=== PATIENT | male | born 1970 | race Caucasian/White ===

== ENCOUNTER 2019-02-14 11:43 | Emergency (ER) | payer OTHER ==
--- NOTE | 2019-02-14 12:35 | ED ---
Psych HPI - General Chief Complaint: Psychiatric Symptoms Stated Complaint: mental health Source: patient Mode of arrival: ambulatory - History of Present Illness Initial Comments: 48yo male with history of panic disorder presents emergency department for chief complaint of uncontrolled anxiety. Patient states the past year since she has been taken off his Xanax he has had uncontrolled anxiety. Patient states this caused him to return to call. Patient states that he singeing alcohol to relieve the stress. Patient states is now interfering daily activities, he states he is unable to work due to her high anxiety and public setting. Patient has a chest pain shortness of breath nausea vomiting headache dizziness. Patient states if he could E put back on Xanax or any other anti-anxiety medications he feels he would be better. Patient denies any suicidal or homicidal ideation. Patient states he just wants established with a psychiatrist. Has an outpatient scheduled appointment for February 20. Patient has no other complaints patient was petitioned by his sister for psychiatric evaluation. Patient states today what to come to the hospital. Remaining review of system negative. Upon arrival patient does not appear acutely psychotic he is cooperative in no distress. - Related Data Home Medications Medication Instructions Recorded Confirmed No Known Home Medications 02/14/19 02/14/19 Allergies Allergy/AdvReac Type Severity Reaction Status Date / Time No Known Allergies Allergy Verified 02/14/19 12:09 Review of Systems ROS Statement: Those systems with pertinent positive or pertinent negative responses have been documented in the HPI. ROS Other: All systems not noted in ROS Statement are negative. Past Medical History Past Medical History: No Reported History History of Any Multi-Drug Resistant Organisms: None Reported Additional Past Surgical History / Comment(s): mole removal Past Psychological History: Anxiety, Depression Smoking Status: Current every day smoker Past Alcohol Use History: Occasional Past Drug Use History: None Reported General Exam - General Exam Comments Initial Comments: General: The patient is awake and alert, in no distress, and does not appear acutely ill. Eye: Pupils are equal, round and reactive to light, extra-ocular movements are intact. No nystagmus. There is normal conjunctiva bilaterally. No signs of i cterus. Cardiovascular: There is a regular rate and rhythm. No murmur, rub or gallop is appreciated. Respiratory: Lungs are clear to auscultation, respirations are non-labored, breath sounds are equal. No wheezes, stridor, rales, or rhonchi. Gastrointestinal: Soft, non-distended, non-tender abdomen without masses or o rganomegaly noted. There is no rebound or guarding present. Musculoskeletal: Normal ROM, no tenderness. Strength 5/5. Sensation intact. Pulses equal bilaterally 2+. Neurological: A&O x 3. CN II-XII intact grossly, There are no obvious motor or sensory deficits. Coordination appears grossly intact. Speech is normal. Skin: Skin is warm and dry and no rashes or lesions are noted. Psychiatric: Cooperative, appropriate mood & affect, normal judgment. Limitations: no limitations Course Vital Signs 02/14/19 02/14/19 11:50 16:08 Temperature 97.5 F L 98.0 F Pulse Rate 106 H 98 Respiratory 20 18 Rate Blood Pressure 180/101 167/96 O2 Sat by Pulse 97 95 Oximetry Medical Decision Making - Medical Decision Making 48 year-old male presents emergency room for evaluation of chronic anxiety for the past year since he has been off his Xanax. Patient does not appear to be a harm to himself or others. Patient does have an outpatient psychiatry aracelis ointment. Patient has no other complaints. Patient did have elevation of heart rate as well as blood pressure on arrival--however he states he was anxious and did not want to be in the hospital. Repeat vital signs reveal a heart rate and normal limits. Patient was given 1 dose of Ativan. Patient was medically cleared and evaluated by psychiatry nurse, she spoke with psychiatrist who recommended outpatient treatment, patient was provided additional resources. Patient discharged appearing well after discussing the case with Dr. Rodriguez. - Lab Data Lab Results 02/14/19 Range/Units 13:45 Urine Opiates Screen Not Detected (NotDetected) Ur Oxycodone Screen Not Detected (NotDetected) Urine Methadone Screen Not Detected (NotDetected) Ur Propoxyphene Screen Not Detected (NotDetected) Ur Barbiturates Screen Not Detected (NotDetected) U Tricyclic Antidepress Not Detected (NotDetected) Ur Phencyclidine Scrn Not Detected (NotDetected) Ur Amphetamines Screen Not Detected (NotDetected) U Methamphetamines Scrn Not Detected (NotDetected) U Benzodiazepines Scrn Not Detected (NotDetected) Urine Cocaine Screen Not Detected (NotDetected) U Marijuana (THC) Screen Not Detected (NotDetected) Disposition Clinical Impression: Chronic anxiety, Alcohol abuse, History of panic disorder Disposition: HOME SELF-CARE Condition: Good Additional Instructions: Please use medication as discussed. Please follow-up with outpatient psychiatry as discussed and scheduled. Please return to emergency room if the symptoms increase or worsen or for any other concerns. Is patient prescribed a controlled substance at d/c from ED?: No Referrals: Taurus Petit MD [Primary Care Provider] - 1-2 days Time of Disposition: 16:04
[2019-02-14] MEDS ORDERED: LORazepam 1 MG TAB PO STA (13:23)
[2019-02-14 14:54] LABS: Amphetamine Screen,Urine Not Detected (NotDetected); Barbiturate Screen,Urine Not Detected (NotDetected); Benzodiazepines Screen,Urine Not Detected (NotDetected); Cocaine Screen,Urine Not Detected (NotDetected); Methadone Screen, Urine Not Detected (NotDetected); Opiate Screen,Urine Not Detected (NotDetected); Oxycodone Screen, Urine Not Detected (NotDetected); Phencyclidine Screen,Urine Not Detected (NotDetected); Tricyclic Antidepressant,Urine Not Detected (NotDetected); Urn Cannabinoid Scrn Not Detected (NotDetected)
[2019-02-14 16:09] VITALS: BP 167/96; PULSE 98; RESP 18; TEMP 98
== END 2019-02-14 16:39 | disposition home or self-care (01) ==
LOC: EC 11:43
DX: F41.9 Anxiety disorder, unspecified (principal); F10.10 Alcohol abuse, uncomplicated; F17.200 Nicotine dependence, unspecified, uncomplicated; Z86.59 Personal history of other mental and behavioral disorders
CPT/HCPCS: 80306; 82075; 99284

== ENCOUNTER 2019-02-17 17:54 | Emergency (ER) | payer OTHER ==
[2019-02-17] MEDS ORDERED: ALPRAZolam 0.5 MG TAB PO STA (18:33)
--- NOTE | 2019-02-17 18:37 | ED ---
Psych HPI - General Source: patient Mode of arrival: ambulatory <Amelia Singletary - Last Filed: 02/17/19 18:49> <Jovani Barahona - Last Filed: 02/18/19 10:43> - General Chief Complaint: Psychiatric Symptoms Stated Complaint: Mental Health Time Seen by Provider: 02/17/19 18:20 - History of Present Illness Initial Comments: 48-year-old male patient presents to the emergency department today for evaluation of suicidal ideation. States he has severe anxiety. Patient states that he is very fearful to leave the house or to drive. States that symptoms seem to be getting worse and he is now unable to work or function. Patient states his been going on for many years, but was controlled with xanax. States they stopped giving him the xanax about a year ago. Patient states he replaced it with alcohol and has been drinking heavily since. States he does not go out socially or into public. States he had a severe panic attack while driving a few days ago, his arms and legs went numb and he was nervous he would crash his car. Patient states that he cannot go on like this and has been having thoughts of suicide. States that his plan is to hang himself with his neck tie. Not currently taking any medications or receive outpatient counseling. Denies any history of mental health admission. He denies any current physical symptoms or concerns. Patient denies any recent rash, fever, chills, shortness breath, chest pain, abdominal pain, nausea, vomiting, diarrhea, constipation, back pain, numbness, tingling, dizziness, weakness, hematuria, dysuria, urinary urgency, urinary frequency, headache, visual changes, or any other complaints. (Amelia Singletary) - Related Data Home Medications Medication Instructions Recorded Confirmed LORazepam [Ativan] 0.5 mg PO DAILY PRN 02/17/19 02/17/19 Lisinopril [Zestril] 10 mg PO DIRECTED 02/17/19 02/17/19 Multivitamin [Multivitamins Adult 1 tab PO DAILY 02/17/19 02/17/19 Gummies] Allergies Allergy/AdvReac Type Severity Reaction Status Date / Time No Known Allergies Allergy Verified 02/17/19 18:41 Review of Systems ROS Other: All systems not noted in ROS Statement are negative. <Amelia Singletary - Last Filed: 02/17/19 18:49> ROS Other: All systems not noted in ROS Statement are negative. <JunJovani - Last Filed: 02/18/19 10:43> ROS Statement: Those systems with pertinent positive or pertinent negative responses have been documented in the HPI. Past Medical History Past Medical History: No Reported History History of Any Multi-Drug Resistant Organisms: None Reported Additional Past Surgical History / Comment(s): mole removal Past Psychological History: Anxiety, Depression Smoking Status: Current every day smoker Past Alcohol Use History: Abuse, Daily Past Drug Use History: None Reported <Amelia Singletary - Last Filed: 02/17/19 18:49> General Exam Limitations: no limitations General appearance: alert, in no apparent distress, other (This is a well-develo ped, well-nourished adult male patient in no acute distress. Vital signs upon presentation are temperature 98.2F, pulse 104, respirations 18, blood pressure 148/91, pulse ox 97% on room air.) Eye exam: Present: normal appearance, PERRL, EOMI. Absent: scleral icterus, conjunctival injection, periorbital swelling ENT exam: Present: normal exam, normal oropharynx, mucous membranes moist Respiratory exam: Present: normal lung sounds bilaterally. Absent: respiratory distress, wheezes, rales, rhonchi, stridor Cardiovascular Exam: Present: regular rate, normal rhythm, normal heart sounds. Absent: systolic murmur, diastolic murmur, rubs, gallop, clicks Neurological exam: Present: alert, oriented X3, CN II-XII intact Psychiatric exam: Present: anxious, suicidal ideation. Absent: homicidal ideation Skin exam: Present: warm, dry, intact, normal color. Absent: rash <Amelia Singletary M - Last Filed: 02/17/19 18:49> Course <JunJovani - Last Filed: 02/18/19 10:43> Vital Signs 02/17/19 02/17/19 02/18/19 18:15 22:00 10:40 Temperature 98.2 F 98.1 F Pulse Rate 104 H 97 92 Respiratory 18 18 16 Rate Blood Pressure 148/91 134/91 152/97 O2 Sat by Pulse 97 96 Oximetry - Reevaluation(s) Reevaluation #1: 02/18/19 10:41 The patient rested comfortably throughout the evening but is very anxious. He was evaluated by the psychiatric service and will be transferred. He is still very anxious and depressed and suicidal. A new clinical certification was filled out by me. (Jovani Barahona) Medical Decision Making - Lab Data Result diagrams: 02/18/19 01:15 02/18/19 01:15 <Jovani Barahona - Last Filed: 02/18/19 10:43> - Lab Data Lab Results 02/17/19 02/18/19 02/18/19 Range/Units 20:09 01:15 01:15 WBC 8.2 (3.8-10.6) k/uL RBC 4.94 (4.30-5.90) m/uL Hgb 15.4 (13.0-17.5) gm/dL Hct 47.4 (39.0-53.0) % MCV 96.0 (80.0-100.0) fL MCH 31.2 (25.0-35.0) pg MCHC 32.5 (31.0-37.0) g/dL RDW 12.6 (11.5-15.5) % Plt Count 246 (150-450) k/uL Neutrophils % 45 % Lymphocytes % 41 % Monocytes % 6 % Eosinophils % 3 % Basophils % 2 % Neutrophils # 3.7 (1.3-7.7) k/uL Lymphocytes # 3.4 (1.0-4.8) k/uL Monocytes # 0.5 (0-1.0) k/uL Eosinophils # 0.3 (0-0.7) k/uL Basophils # 0.1 (0-0.2) k/uL Sodium 138 (137-145) mmol/L Potassium 3.8 (3.5-5.1) mmol/L Chloride 103 (98-107) mmol/L Carbon Dioxide 20 L (22-30) mmol/L Anion Gap 15 mmol/L BUN 9 (9-20) mg/dL Creatinine 0.70 (0.66-1.25) mg/dL Est GFR (CKD-EPI)AfAm >90 (>60 ml/min/1.73 sqM) Est GFR (CKD-EPI)NonAf >90 (>60 ml/min/1.73 sqM) Glucose 88 (74-99) mg/dL Calcium 9.5 (8.4-10.2) mg/dL Total Bilirubin 0.6 (0.2-1.3) mg/dL AST 62 H (17-59) U/L ALT 75 H (21-72) U/L Alkaline Phosphatase 53 (38-126) U/L Total Protein 7.4 (6.3-8.2) g/dL Albumin 4.6 (3.5-5.0) g/dL Urine Opiates Screen Not Detected (NotDetected) Ur Oxycodone Screen Not Detected (NotDetected) Urine Methadone Screen Not Detected (NotDetected) Ur Propoxyphene Screen Not Detected (NotDetected) Ur Barbiturates Screen Not Detected (NotDetected) U Tricyclic Antidepress Not Detected (NotDetected) Ur Phencyclidine Scrn Not Detected (NotDetected) Ur Amphetamines Screen Not Detected (NotDetected) U Methamphetamines Scrn Not Detected (NotDetected) U Benzodiazepines Scrn Not Detected (NotDetected) Urine Cocaine Screen Not Detected (NotDetected) U Marijuana (THC) Screen Not Detected (NotDetected) Disposition <Amelia Singletary - Last Filed: 02/17/19 18:49> - Out of Hospital Transfer - Req. Specs Out of Hospital Transfer - Requested Specifics: Psychiatric Non-ICU <Jovani Barahona - Last Filed: 02/18/19 10:43> Clinical Impression: Acute anxiety, Depression, Suicidal ideation Disposition: TRANSFER TO PSYCH HOSP/UNIT Condition: Fair Referrals: Taurus Petit MD [Primary Care Provider] - 1-2 days
[2019-02-17 20:40] LABS: Amphetamine Screen,Urine Not Detected (NotDetected); Barbiturate Screen,Urine Not Detected (NotDetected); Benzodiazepines Screen,Urine Not Detected (NotDetected); Cocaine Screen,Urine Not Detected (NotDetected); Methadone Screen, Urine Not Detected (NotDetected); Opiate Screen,Urine Not Detected (NotDetected); Oxycodone Screen, Urine Not Detected (NotDetected); Phencyclidine Screen,Urine Not Detected (NotDetected); Tricyclic Antidepressant,Urine Not Detected (NotDetected); Urn Cannabinoid Scrn Not Detected (NotDetected)
[2019-02-17 23:23] VITALS: TEMP 98.1
[2019-02-18] MEDS ORDERED: LORazepam 2 MG/ML INJ IM STA (00:41)
[2019-02-18 01:28] LABS: Basophils # (A) 0.1 k/uL (0-0.2); Basophils % (A) 2 %; Eosinophils # (A) 0.3 k/uL (0-0.7); Eosinophils % (A) 3 %; HCT 47.4 % (39.0-53.0); HGB 15.4 gm/dL (13.0-17.5); Lymphocytes # (A) 3.4 k/uL (1.0-4.8); Lymphocytes % (A) 41 %; MCH 31.2 pg (25.0-35.0); MCHC 32.5 g/dL (31.0-37.0); Mean Platelet Volume 6.1; Monocytes # (A) 0.5 k/uL (0-1.0); Monocytes % (A) 6 %; Neutrophils # (A) 3.7 k/uL (1.3-7.7); Neutrophils % (A) 45 %; Platelet Count 246 k/uL (150-450); RBC 4.94 m/uL (4.30-5.90); RDW 12.6 % (11.5-15.5); WBC 8.2 k/uL (3.8-10.6)
[2019-02-18 01:38] LABS: ALT 75 U/L (21-72); AST 62 U/L (17-59); African American GFR (CKD) >90 (>60 ml/min/1.73 sqM); Albumin 4.6 g/dL (3.5-5.0); Alkaline Phosphatase 53 U/L (38-126); Anion Gap 15 mmol/L; Blood Urea Nitrogen 9 mg/dL (9-20); Calcium 9.5 mg/dL (8.4-10.2); Carbon Dioxide 20 mmol/L (22-30); Chloride 103 mmol/L (98-107); Glucose 88 mg/dL (74-99); Potassium 3.8 mmol/L (3.5-5.1); Sodium 138 mmol/L (137-145); Total Bilirubin 0.6 mg/dL (0.2-1.3); Total Protein 7.4 g/dL (6.3-8.2)
[2019-02-18] MEDS ORDERED: ALPRAZolam 1 MG TAB PO STA (10:36)
[2019-02-18 10:42] VITALS: RESP 16
[2019-02-18 16:27] VITALS: BP 160/80; PULSE 80
== END 2019-02-18 14:55 ==
LOC: EC 17:54
DX: R45.851 Suicidal ideations (principal); F41.9 Anxiety disorder, unspecified; F32.9 Major depressive disorder, single episode, unspecified; F17.200 Nicotine dependence, unspecified, uncomplicated; Z79.899 Other long term (current) drug therapy
CPT/HCPCS: 82075; 36415; 80053; 85025; 80306; 99285; 96372; J2060

== ENCOUNTER 2020-07-30 10:16 | Inpatient (IN) | payer OTHER ==
[2020-07-30] MEDS ORDERED: KETOROLAC 15 MG/ML 1 ML VIAL IVP STA (11:16)
[2020-07-30] MEDS ORDERED: MORPHINE SULFATE 4 MG/ML SYRINGE IVP STA (11:16)
[2020-07-30] MEDS ORDERED: ONDANSETRON 4 MG/2 ML VIAL IVP STA (11:16)
--- NOTE | 2020-07-30 11:58 | ED ---
Back Pain HPI - General Chief Complaint: Back Pain/Injury Stated Complaint: back pain Time Seen by Provider: 07/30/20 10:54 Source: patient, RN notes reviewed Mode of arrival: ambulatory Limitations: no limitations - History of Present Illness Initial Comments: This a 49-year-old male presents emergency Department with chief complaint of low back pain. Patient's been having issues with sciatica. Patient states that he was schedule have x-rays today but states the pain was worse and decided to come to the emergency department for pain control. He denies any bowel bladder incontinence or retention or saddle anesthesias denies any abdominal pain. Patient states that he was told he had abnormal EKG this is complaining of GERD symptoms to his PCP patient states he is supposed referred to outpatient testing. Patient states she still has some mild GERD/lower chest pain.. He states he is scheduled for follow-up outpatient. Patient denies any fevers or chills - Related Data Home Medications Medication Instructions Recorded Confirmed Venlafaxine HCl [Effexor XR] 37.5 mg PO DAILY 07/30/20 07/30/20 Venlafaxine HCl [Effexor XR] 150 mg PO DAILY 07/30/20 07/30/20 clonazePAM [KlonoPIN] 1 mg PO TID 07/30/20 07/30/20 Allergies Allergy/AdvReac Type Severity Reaction Status Date / Time No Known Allergies Allergy Verified 07/30/20 13:10 Review of Systems ROS Statement: Those systems with pertinent positive or pertinent negative responses have been documented in the HPI. ROS Other: All systems not noted in ROS Statement are negative. Past Medical History Past Medical History: No Reported History History of Any Multi-Drug Resistant Organisms: None Reported Additional Past Surgical History / Comment(s): mole removal, hpbv Past Psychological History: Anxiety, Depression Smoking Status: Current every day smoker Past Alcohol Use History: Abuse, Daily Past Drug Use History: None Reported General Exam Limitations: no limitations General appearance: alert, in no apparent distress Head exam: Present: atraumatic, normocephalic, normal inspection Eye exam: Present: normal appearance, PERRL, EOMI. Absent: scleral icterus, conjunctival injection, periorbital swelling Respiratory exam: Present: normal lung sounds bilaterally. Absent: respiratory distress, wheezes, rales, rhonchi, stridor Cardiovascular Exam: Present: regular rate, normal rhythm, normal heart sounds. Absent: systolic murmur, diastolic murmur, rubs, gallop, clicks GI/Abdominal exam: Present: soft, normal bowel sounds. Absent: distended, tenderness, guarding, rebound, rigid Extremities exam: Present: other (Lower extremity strength equal bilaterally neurovascular intact) Back exam: Present: full ROM (Moderate discomfort), tenderness (Left lower lumbar), paraspinal tenderness, vertebral tenderness Neurological exam: Present: CN II-XII intact, normal gait, reflexes normal. Absent: motor sensory deficit Skin exam: Present: warm, dry, intact, normal color. Absent: rash Course Vital Signs 07/30/20 07/30/20 07/30/20 10:21 12:26 13:00 Temperature 98.5 F Pulse Rate 99 82 Respiratory 18 18 18 Rate Blood Pressure 180/130 189/132 176/114 O2 Sat by Pulse 99 96 Oximetry 07/30/20 13:46 Temperature Pulse Rate 82 Respiratory 18 Rate Blood Pressure 164/100 O2 Sat by Pulse Oximetry Medical Decision Making - Medical Decision Making Patient wanted to have an elevated troponin at 0.088. Patient was started on heparin. Patiently admitted for cardiac rule out. Patient consult cardiology. - Lab Data Result diagrams: 07/30/20 12:42 07/30/20 12:42 Lab Results 07/30/20 07/30/20 07/30/20 Range/Units 12:42 12:42 12:42 WBC 8.1 (3.8-10.6) k/uL RBC 5.44 (4.30-5.90) m/uL Hgb 17.2 (13.0-17.5) gm/dL Hct 51.2 (39.0-53.0) % MCV 94.2 (80.0-100.0) fL MCH 31.6 (25.0-35.0) pg MCHC 33.5 (31.0-37.0) g/dL RDW 13.0 (11.5-15.5) % Plt Count 289 (150-450) k/uL MPV 7.0 Neutrophils % 59 % Lymphocytes % 29 % Monocytes % 7 % Eosinophils % 2 % Basophils % 1 % Neutrophils # 4.8 (1.3-7.7) k/uL Lymphocytes # 2.4 (1.0-4.8) k/uL Monocytes # 0.6 (0-1.0) k/uL Eosinophils # 0.2 (0-0.7) k/uL Basophils # 0.1 (0-0.2) k/uL Sodium 136 L (137-145) mmol/L Potassium 4.5 (3.5-5.1) mmol/L Chloride 101 (98-107) mmol/L Carbon Dioxide 21 L (22-30) mmol/L Anion Gap 14 mmol/L BUN 15 (9-20) mg/dL Creatinine 0.78 (0.66-1.25) mg/dL Est GFR (CKD-EPI)AfAm >90 (>60 ml/min/1.73 sqM) Est GFR (CKD-EPI)NonAf >90 (>60 ml/min/1.73 sqM) Glucose 102 H (74-99) mg/dL Calcium 10.0 (8.4-10.2) mg/dL Total Bilirubin 0.7 (0.2-1.3) mg/dL AST 36 (17-59) U/L ALT 26 (4-49) U/L Alkaline Phosphatase 58 (38-126) U/L Troponin I 0.088 H* (0.000-0.034) ng/mL Total Protein 8.0 (6.3-8.2) g/dL Albumin 4.8 (3.5-5.0) g/dL Lipase 193 (23-300) U/L Disposition Clinical Impression: Hypertension, Anginal equivalent, Sciatica, Elevated troponin Disposition: ADMITTED IP TO THIS HOSP Condition: Fair Referrals: Taurus Petit MD [Primary Care Provider] - 1-2 days
--- NOTE | 2020-07-30 12:06 | XR ---
EXAMINATION TYPE: XR knee complete LT DATE OF EXAM: 07/30/2020 COMPARISON: NONE HISTORY: Pain TECHNIQUE: Three views are submitted. FINDINGS: Joint spaces are preserved. Osseous structures are intact. No acute fracture seen. IMPRESSION: 1. No acute fracture or dislocation.
--- NOTE | 2020-07-30 12:06 | XR ---
EXAM TYPE: LUMBAR SPINE X RAY SERIES COMPARISON: NONE HISTORY: Pain TECHNIQUE: 4 views are submitted. FINDINGS: Alignment is anatomic. The pedicles are intact. The transverse processes are intact. There is no s pondylolysis or spondylolisthesis. Facet arthropathy lower lumbar spine. Mild hypertrophic changes. Mild degenerative disc disease L5-S1. IMPRESSION: 1. Multilevel facet arthropathy. 2. Mild degenerative disc disease L5-S1.
[2020-07-30] MEDS ORDERED: hydrALAZINE HCL 20 MG/ML 1 ML VIAL IVP STA ×2 (12:34→14:04)
[2020-07-30] MEDS ORDERED: HYDROmorphone 1 MG/ML 1 ML SYRINGE IVP STA (12:34)
[2020-07-30 13:01] LABS: Basophils # (A) 0.1 k/uL (0-0.2); Basophils % (A) 1 %; Eosinophils # (A) 0.2 k/uL (0-0.7); Eosinophils % (A) 2 %; HCT 51.2 % (39.0-53.0); HGB 17.2 gm/dL (13.0-17.5); Lymphocytes # (A) 2.4 k/uL (1.0-4.8); Lymphocytes % (A) 29 %; MCH 31.6 pg (25.0-35.0); MCHC 33.5 g/dL (31.0-37.0); MCV 94.2 fL (80.0-100.0); Monocytes # (A) 0.6 k/uL (0-1.0); Monocytes % (A) 7 %; Neutrophils # (A) 4.8 k/uL (1.3-7.7); Neutrophils % (A) 59 %; Platelet Count 289 k/uL (150-450); RBC 5.44 m/uL (4.30-5.90); WBC 8.1 k/uL (3.8-10.6)
[2020-07-30 13:03] LABS: ALT 26 U/L (4-49); AST 36 U/L (17-59); African American GFR (CKD) >90 (>60 ml/min/1.73 sqM); Albumin 4.8 g/dL (3.5-5.0); Alkaline Phosphatase 58 U/L (38-126); Anion Gap 14 mmol/L; Blood Urea Nitrogen 15 mg/dL (9-20); Carbon Dioxide 21 mmol/L (22-30); Chloride 101 mmol/L (98-107); Glucose 102 mg/dL (74-99); Lipase 193 U/L (23-300); Non-African American GFR(CKD) >90 (>60 ml/min/1.73 sqM); Sodium 136 mmol/L (137-145); Total Bilirubin 0.7 mg/dL (0.2-1.3)
[2020-07-30 13:09] LABS: Potassium 4.5 mmol/L (3.5-5.1)
[2020-07-30] MEDS ORDERED: ASPIRIN 81 MG PO STA (13:54)
[2020-07-30] MEDS ORDERED: HEPARIN SODIUM,PORCINE 5,000 UNIT/ML 1 ML VIAL IV PRN (13:55)
[2020-07-30] MEDS ORDERED: NITROGLYCERIN SL TABS 0.4 MG TAB SUBLINGUAL PRN (13:55)
[2020-07-30] MEDS ORDERED: HEPARIN SODIUM,PORCINE 5,000 UNIT/ML 1 ML VIAL IV ONE (13:55)
[2020-07-30] MEDS ORDERED: HEPARIN SOD,PORK IN 0.45% NACL 25,000 UNIT in 0.45% NACL 1 250ML.BAG IV SCH (14:00)
[2020-07-30] MEDS: MORPHINE SULFATE 4 MG/ML SYRINGE IV PRN ×2 (14:45→21:41)
--- NOTE | 2020-07-30 15:00 | XR ---
EXAMINATION TYPE: XR chest 1V DATE OF EXAM: 07/30/2020 HISTORY: Shortness of breath. COMPARISON: None. TECHNIQUE: Single view of the chest is submitted. FINDINGS: Demonstrated are scattered senescent parenchymal change. There is no evidence for focal infiltrate. The heart is stable. Hilar and mediastinal structures are within normal limits. Degenerative changes are seen of the dorsal spine. IMPRESSION: 1. Chronic changes without evidence for acute pulmonary disease.
[2020-07-30] MEDS ORDERED: clonazePAM 1 MG TAB PO SCH (16:00)
[2020-07-30] MEDS: clonazePAM 0.5 MG TAB PO SCH ×2 (18:20→22:30)
--- NOTE | 2020-07-30 22:15 | P.HPIM ---
History of Present Illness H&P Date: 07/30/20 Chief Complaint: Low back and leg pain History of presenting complaint: This is a pleasant 49-year-old patient of Dr. Freeman Petit. Patient is was a smoker and history of anxiety depression for which he takes medicines. Last fall patient started having pain in the lower back on the left side while doing some yard work. It has been present rather constantly but progressively is guarded worse. Patient did quite see a chiropractor twice not with much help. He also did: See his family doctor Dr. Petit who ordered some x-rays with him. 2 days he noticed that patient's finding difficulty to walk with a pain rating down left leg. Also area of burning sensation in the lower part of the leg and some numbness. No change in her bowel or bladder pattern. Patient was playing active hockey in the past patient also recently been having episodes of heartburn which has been present on and off. He sometimes takes Tums for the same. Patient's troponin started to come back positive. He has had these symptoms on and off for some time. Review of systems: GEN.: None EYES: None HEENT: None NECK: None RESPIRATORY: None CARDIOVASCULAR: Heartburn GASTROINTESTINAL: Heartburn GENITOURINARY: None MUSCULOSKELETAL: As above] LYMPHATICS: None HEMATOLOGICAL: None PSYCHIATRY: None NEUROLOGICAL: None Past medical history to include: Anxiety, depression Social history: He rents a room from his sister. Smokes about half a pack a day. Denies use of any recreational drugs. No alcohol. Will be starting a job in couple of days.. Family history: Reviewed, noncontributory to presentation Physical examination: VITAL SIGNS: 98.5, 99, 18, 164/100, 96% on room air GENERAL: BMI 26.8, laying in bed, comfortable. EYES: Pupils equal. Conjunctiva normal. HEENT: External appearance of nose and ears normal, oral cavity grossly normal. NECK: JVD not raised; masses not palpable. HEART: First and second heart sounds are normal; no edema. LUNGS: Respiratory rate normal; clear to auscultation. ABDOMEN: Soft, nontender, liver spleen not palpable, no masses palpable. PSYCH: Alert and oriented x3; mood and affect normal. MUSCULAR skeletal: Slight tenderness over the lower no spine on the left side lateral to the midline NEUROLOGICAL: Cranial nerves grossly intact; no facial asymmetry, power and sensation grossly intact. Increased reflexes of the left knee LYMPHATICS: No lymph nodes palpable in the axilla and neck INVESTIGATIONS, reviewed in the clinical context: WBC 8.1 hemoglobin 7.2 platelets 289 potassium 4.5 creatinine 0.78 Troponin I 0.088, 0.342, 0.271 Coronavirus [PCR]-not detected EKG tracing personally reviewed by me-normal sinus rhythm Chest x-ray film personally reviewed by me-no infiltrates Lumbar x-ray: Multilevel facet arthropathy. Mild DJD at L5-S1 level. Assessment and plan: -Possible non-Q wave TN. Patient been having some burning sensation in the chest. On and off for some time. EKGs mainly unremarkable. There is a rise and fall of the troponin. Placed on aspirin, IV heparin. On a 2-D echo. -IV heparin monitoring -Depression and anxiety not otherwise specified. Continue home medications -Chronic nicotine dependence patient cigarette smoker. Nicotine patch -Acute on chronic L5-S1 junction pain with radiculopathy, worsening Consultations be made to cardiology and orthopedic spine. Hold off any NSAIDs right now until the matter of coronary is settled. Care was discussed with the patient. Questions answered. Past Medical History Past Medical History: No Reported History History of Any Multi-Drug Resistant Organisms: None Reported Additional Past Surgical History / Comment(s): mole removal, hpbv Past Psychological History: Anxiety, Depression Smoking Status: Current every day smoker Past Alcohol Use History: Abuse, Daily Past Drug Use History: None Reported Medications and Allergies Home Medications Medication Instructions Recorded Confirmed Type Venlafaxine HCl [Effexor XR] 37.5 mg PO DAILY 07/30/20 07/30/20 History Venlafaxine HCl [Effexor XR] 150 mg PO DAILY 07/30/20 07/30/20 History clonazePAM [KlonoPIN] 1 mg PO TID 07/30/20 07/30/20 History Allergies Allergy/AdvReac Type Severity Reaction Status Date / Time No Known Allergies Allergy Verified 07/30/20 13:10 Physical Exam Vitals: Vital Signs Temp Pulse Resp BP Pulse Ox 07/30/20 21:44 68 16 146/103 07/30/20 18:10 97.5 F L 72 18 130/91 98 07/30/20 13:46 82 18 164/100 07/30/20 13:00 82 18 176/114 96 07/30/20 12:26 18 189/132 07/30/20 10:21 98.5 F 99 18 180/130 99 Intake and Output 07/30/20 07/30/20 07/30/20 06:59 14:59 22:59 Other: Weight 99.79 kg Results CBC & Chem 7: 07/30/20 12:42 07/30/20 12:42 Labs: Abnormal Lab Results - Last 24 Hours (Table) 07/30/20 07/30/20 07/30/20 Range/Units 12:42 12:42 15:30 Sodium 136 L (137-145) mmol/L Carbon Dioxide 21 L (22-30) mmol/L Glucose 102 H (74-99) mg/dL Troponin I 0.088 H* 0.342 H* (0.000-0.034) ng/mL 07/30/20 Range/Units 19:45 Sodium (137-145) mmol/L Carbon Dioxide (22-30) mmol/L Glucose (74-99) mg/dL Troponin I 0.271 H* (0.000-0.034) ng/mL
[2020-07-31 03:33] LABS: Cholesterol 257 mg/dL (<200); HDL Cholesterol 49 mg/dL (40-60); LDL Cholesterol,Calculated 140 mg/dL (0-99); Triglycerides 342 mg/dL (<150)
[2020-07-31] MEDS: MORPHINE SULFATE 4 MG/ML SYRINGE IV PRN ×4 (04:08→22:13)
[2020-07-31] MEDS ORDERED: ASPIRIN 325 MG TAB PO SCH (09:00)
[2020-07-31] MEDS ORDERED: ASPIRIN 325 MG TAB PO ONE (10:05)
[2020-07-31] MEDS ORDERED: ALPRAZolam 0.25 MG TAB PO PRN (10:09)
[2020-07-31] MEDS ORDERED: ALPRAZolam 0.5 MG TAB PO PRN (10:09)
[2020-07-31] MEDS ORDERED: SODIUM CHLORIDE 0.9% 1,000 ML in EMPTY BAG 1 BAG IV ONE (10:09)
[2020-07-31] MEDS: clonazePAM 0.5 MG TAB PO SCH ×3 (10:13→21:18)
[2020-07-31] MEDS: METOPROLOL TARTRATE 12.5 MG TAB PO SCH ×3 (10:13→21:18)
[2020-07-31] MEDS: ATORVASTATIN 80 MG TAB PO SCH (10:44)
[2020-07-31] MEDS: VENLAFAXINE HCL ER 150 MG CAP PO SCH (10:45)
[2020-07-31] MEDS: VENLAFAXINE HCL ER 37.5 MG CAP PO SCH (10:45)
--- NOTE | 2020-07-31 11:00 | ECHOF ---
Referral Reason:chest pain MEASUREMENTS -------- HEIGHT: 188.0 cm WEIGHT: 99.8 kg BP: IVSd: 1.5 cm (0.6 - 1.1) LVIDd: 4.9 cm (3.9 - 5.3) LVPWd: 1.6 cm (0.6 - 1.1) IVSs: 1.9 cm LVIDs: 3.8 cm LVPWs: 1.7 cm Ao Diam: 3.7 cm (2.0 - 3.7) AV Cusp: 2.1 cm (1.5 - 2.6) LA Diam: 3.0 cm (2.7 - 3.8) MV EXCURSION: 16.312 mm (> 18.000) MV EF SLOPE: 29 mm/s (70 - 150) EPSS: 1.6 cm MV E Luis Daniel: 0.62 m/s MV DecT: 217 ms MV A Luis Daniel: 0.81 m/s MV E/A Ratio: 0.77 RAP: 5.00 mmHg RVSP: 10.49 mmHg FINDINGS -------- This was a technically adequate study. The left ventricular size is normal. There is moderate concentric left ventricular hypertrophy. O verall left ventricular systolic function is low-normal with, an EF between 50 - 55 %. The right ventricle is normal in size. The left atrial size is normal. The right atrial size is normal. The aortic valve is trileaflet and appears structurally normal. The mitral valve is normal. There is trace mitral regurgitation. The tricuspid valve appears structurally normal. Trace tricuspid regurgitation present. Right trixie tricular systolic pressure is normal at < 35 mmHg. There is no pulmonic regurgitation present. The aortic root size is normal. Normal inferior vena cava with normal inspiratory collapse consistent with estimated right atrial pre ssure of 5 mmHg. There is no pericardial effusion. CONCLUSIONS -------- 1. The left ventricular size is normal. 2. There is moderate concentric left ventricular hypertrophy. 3. Overall left ventricular systolic function is low-normal with, an EF between 50 - 55 %. 4. There is trace mitral regurgitation. 5. Trace tricuspid regurgitation present. 6. There is no pericardial effusion. PULPWOOD CUTTER: Medina Ellis RDCS
[2020-07-31] MEDS ORDERED: IV FLUID CONTINUATION 900 ML IV ONE (11:28)
[2020-07-31] MEDS ORDERED: LIDOCAINE 1% INJ 10MG/ML (20 ML MDV) SQ ONE (11:38)
[2020-07-31] MEDS ORDERED: fentaNYL (PF) 50 MCG/ML 2 ML AMP IV ONE ×2 (11:39)
[2020-07-31] MEDS ORDERED: MIDAZOLAM 2 MG/2 ML VIAL IV ONE (11:39)
[2020-07-31] MEDS ORDERED: VERAPAMIL SYRINGE (5 MG/10 ML) INTRAARTER ONE (11:41)
[2020-07-31] MEDS ORDERED: HEPARIN SODIUM 1,000 UN/ML (10ML VL) IV ONE (11:48)
[2020-07-31] MEDS ORDERED: IOPAMIDOL-370 125ML BTL INJ ONE (11:53)
[2020-07-31] MEDS ORDERED: RX INFO: IV CONTRAST WAS GIVEN 1 EACH MISC MISCELLANE PRN (12:02)
--- NOTE | 2020-07-31 12:02 | P.CARDCATH ---
Description of Procedure: PROCEDURES PERFORMED: Left heart catheterization, bilateral coronary angiography INDICATION: NSTEMI HISTORY: Patient is a pleasant 49-year-old male who presented with back pain and GERD type symptoms and was found to have mildly elevated troponins. Echocardiogram showed ejection fraction 50-55%. Heart catheterization was recommended. CONSENT:I have discussed the risks, benefits and alternative therapies for the above-mentioned procedure and for both sedation/analgesia as well as necessary blood product administration, if indicated, as they pertain to this patient. The patient has indicated understanding and acceptance of the risks and procedures discussed. PROCEDURE: After the risks, benefits and alternatives of the above mentioned procedure explained in detail with the patient, informed consent was obtained. Patient was taken to the catheterization lab and prepped and draped in usual fashion. 1% lidocaine was used to anesthetize the right radial artery. A 6- Hungarian sheath was placed in the right radial artery using modified Seldinger technique. Left coronary angiography was performed with a 5-Hungarian JL 3.5 catheter and right coronary angiography was performed with a 5-Hungarian JR5 catheter in various views. A 5-Hungarian FR5 catheter was inserted into the left ventricle and pressure measurements were obtained. The right radial sheath was removed and a TR band was placed with hemostasis achieved. The patient tolerated the procedure well. Patient was transported back to the post catheterization holding area in stable condition. Conscious Sedation: Patient was monitored under the direct supervision of vision of myself for conscious sedation using Versed and fentanyl for a total duration of 16 minutes HEMODYNAMICS: Aorta: 132/88 LV: 128/8, LVEDP 23 SELECTIVE CORONARY ARTERIOGRAPHY: LEFT MAIN: The left main is a large, short caliber vessel which bifurcates into the LAD and circumflex. There is no significant stenosis. LEFT ANTERIOR DESCENDING CORONARY ARTERY: LAD is a large caliber vessel which wraps around to the apex. There is a focal mid 30% stenosis and otherwise mild luminal irregularities. LEFT CIRCUMFLEX CORONARY ARTERY: Left circumflex is a moderate to large caliber vessel without significant stenosis. RIGHT CORONARY ARTERY: The right coronary artery is a large caliber vessel which gives off a PDA and PLV branch and is the dominant vessel. There is a mid RCA 20% stenosis. FINAL IMPRESSION: 1. Mild nonobstructive coronary artery disease as described above up to 30% mid LAD stenosis. 2. Elevated left-sided filling pressures PLAN: 1. Aggressive risk factor modification per most recent ACC/AHA guidelines.
--- NOTE | 2020-07-31 12:07 | P.PN ---
Progress Note - Text Progress Note Date: 07/31/20 Attempted to see the patient in the emergency room but he is in cardiac catheterization currently.
--- NOTE | 2020-07-31 12:46 | P.PN ---
Subjective From records This is a pleasant 49-year-old patient of Dr. Freeman Petit. Patient is was a smoker and history of anxiety depression for which he takes medicines. Last fall patient started having pain in the lower back on the left side while doing some yard work. It has been present rather constantly but progressively is guarded worse. Patient did quite see a chiropractor twice not with much help. He also did: See his family doctor Dr. Petit who ordered some x-rays with him. 2 days he noticed that patient's finding difficulty to walk with a pain rating down left leg. Also area of burning sensation in the lower part of the leg and some numbness. No change in her bowel or bladder pattern. Patient was playing active hockey in the past patient also recently been having episodes of heartburn which has been present on and off. He sometimes takes Tums for the same. Patient's troponin started to come back positive. He has had these symptoms on and off for some time. Subjective: 07/31/2020 This is a pleasant 49 years old male with multiple medical problems presents with back pain acute on chronic after he did some yard work and found to have elevated troponin. When I saw him this morning he denies any complaint to me, he denies chest pain or dyspnea or coughing. No pain. Patient underwent cardiac cath today per plaster machine tender showing mild nonobstructive coronary artery disease about 30% in the middle LAD stenosis with elevated left side filling the pressure and no stent or PCI was placed and medical management is recommended by plaster machine tender. D-dimer was checked and it was negative at 0.21 Orthopedic team already on the case Review of systems CONSTITUTIONAL: No fever, no malaise, no fatigue. HEENT: No recent visual problems or hearing problems. Denied any sore throat. CARDIOVASCULAR: No orthopnea, PND, no palpitations, no syncope. PULMONARY: No shortness of breath, no cough, no hemoptysis. GASTROINTESTINAL: No diarrhea, no nausea, no vomiting, no abdominal pain. Normoactive bowel sounds. NEUROLOGICAL: No headaches, no weakness, no numbness. Active Medications Generic Name Dose Route Start Last Admin Trade Name Freq PRN Reason Stop Dose Admin Aspirin 81 mg 08/01/20 09:00 Aspirin 81 Mg PO DAILY [facility] Atorvastatin Calcium 80 mg 07/31/20 10:15 07/31/20 10:44 Atorvastatin 80 Mg Tab PO 80 mg DAILY [facility] Administration Clonazepam 1 mg 07/30/20 18:00 07/31/20 10:13 Clonazepam 0.5 Mg Tab PO 1 mg TID [facility] Administration Heparin Sodium (Porcine) 0 unit 07/30/20 13:55 07/31/20 07:58 Heparin Sodium,Porcine 5,000 Unit/Ml 1 Ml Vial IV 4,000 unit Q6HR PRN Administration Low PTT Protocol Heparin Sodium/Sodium Chloride 250 mls @ 9.979 mls/hr 07/30/20 14:00 07/31/20 07:50 25,000 unit/ Sodium Chloride IV 13 units/kg/hr .Q24H [facility] 12.973 mls/hr Titration Protocol 10 UNITS/KG/HR Sodium Chloride 1,000 ml/ IV 1,000 mls @ 99.79 mls/hr 07/31/20 10:09 07/31/20 10:46 Solution IV 07/31/20 20:10 99.79 mls/hr .Q10H2M ONE Administration 1 ML/KG/HR Heparin Sodium (Porcine) 10, 1,001 mls @ 999 mls/hr 08/01/20 07:00 000 unit/ Sodium Chloride IRRIGATION 08/01/20 23:00 ONCE PRN INTRA-OP Heparin Sodium (Porcine) 2,500 250.5 mls @ 250 mls/hr 08/01/20 07:00 unit/ Sodium Chloride IRRIGATION 08/01/20 23:00 ONCE PRN INTRA-OP Metoprolol Tartrate 12.5 mg 07/30/20 23:00 07/31/20 10:16 Metoprolol Tartrate 12.5 Mg Tab PO Not Given BID [facility] Miscellaneous Information 1 each 07/31/20 12:02 Rx Info: Iv Contrast Was Given 1 Each Misc MISCELLANE 08/02/20 12:02 DAILY PRN Per Protocol Morphine Sulfate 4 mg 07/30/20 13:55 07/31/20 10:13 Morphine Sulfate 4 Mg/Ml Syringe IV 4 mg Q4HR PRN Administration Pain Nitroglycerin 0.4 mg 07/30/20 13:55 Nitroglycerin Sl Tabs 0.4 Mg Tab SUBLINGUAL Q5M PRN Chest Pain Venlafaxine HCl 37.5 mg 07/31/20 09:00 07/31/20 10:45 Venlafaxine Hcl Er 37.5 Mg Cap PO 37.5 mg DAILY [facility] Administration Venlafaxine HCl 150 mg 07/31/20 09:00 07/31/20 10:45 Venlafaxine Hcl Er 150 Mg Cap PO 150 mg DAILY [facility] Administration Objective - Vital Signs Vital signs: Vital Signs Temp 97.5 F L 07/30/20 18:10 Pulse 72 07/31/20 12:30 Resp 16 07/31/20 12:30 BP 142/95 07/31/20 12:30 Pulse Ox 95 07/31/20 12:30 Intake & Output 07/30/20 07/31/20 07/31/20 18:59 06:59 18:59 Intake Total 271.14 Balance 271.14 Weight 99.79 kg 99.79 kg Intake: IV 100 Intake, IV Titration 171.14 Amount Heparin Sod,Pork in 0.45% 171.14 NaCl 25,000 unit In 0.45 % NaCl 1 250ml.bag @ 10 UNITS/KG/HR 9.979 mls/hr IV .Q24H [facility] Rx#: [id number] - Exam GENERAL: The patient is alert and oriented x3, not in any acute distress. Well developed, well nourished. HEENT: Pupils are round and equally reacting to light. EOMI. No scleral icterus. No conjunctival pallor. Normocephalic, atraumatic. No pharyngeal erythema. No thyromegaly. CARDIOVASCULAR: S1 and S2 present. No murmurs, rubs, or gallops. PULMONARY: Chest is clear to auscultation, no wheezing or crackles. ABDOMEN: Soft, nontender, nondistended, normoactive bowel sounds. No palpable organomegaly. MUSCULOSKELETAL: No joint swelling or deformity. EXTREMITIES: No cyanosis, clubbing, or pedal edema. NEUROLOGICAL: Gross neurological examination did not reveal any focal deficits. SKIN: No rashes. no petechiae. - Labs CBC & Chem 7: 07/30/20 12:42 07/30/20 12:42 Labs: Abnormal Lab Results - Last 24 Hours (Table) 07/30/20 07/30/20 07/30/20 Range/Units 12:42 12:42 12:42 Sodium 136 L (137-145) mmol/L Carbon Dioxide 21 L (22-30) mmol/L Glucose 102 H (74-99) mg/dL Troponin I 0.088 H* (0.000-0.034) ng/mL Triglycerides 342 H (<150) mg/dL Cholesterol 257 H (<200) mg/dL LDL Cholesterol, Calc 140 H (0-99) mg/dL 07/30/20 07/30/20 Range/Units 15:30 19:45 Sodium (137-145) mmol/L Carbon Dioxide (22-30) mmol/L Glucose (74-99) mg/dL Troponin I 0.342 H* 0.271 H* (0.000-0.034) ng/mL Triglycerides (<150) mg/dL Cholesterol (<200) mg/dL LDL Cholesterol, Calc (0-99) mg/dL Assessment and Plan Assessment: -non-obstructive mild coronary artery disease with 30% stenosis of the mid LAD, medical management is recommended by plaster machine tender -Acute and chronic low back pain, orthopedic team on the case -Depression and anxiety, continue with home medications and they recommended MRI of the lumbar spine which is pending -Nicotine dependence, continue with nicotine patch, patient is counseled DVT prophylaxis: Subcutaneous heparin GI prophylaxis: Pepcid PT/OT: Pending Prognosis is guarded
--- NOTE | 2020-07-31 13:26 | P.CRDCN ---
History of Present Illness History of present illness: HISTORY OF PRESENTING ILLNESS This is a pleasant 49-year-old male past medical history significant for chronic back pain, GERD and chronic nicotine dependence. 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 We have been asked to see in consultation for elevated troponin. He presented to the hospital with symptoms of lower back pain that has been going on intermittently for the last month after helping a neighbor move some things. Over the last 2 days the pain has been getting worse and so bad he couldn't bear it. He also states for the last month he has been experiencing a burning sensation in the mid-sternal region. The discomfort occurs when he wakes up in the morning. He takes 6-7 Tums and the symptoms resolve in about 20 minutes. No complaints of exertional chest pain or shortness of breath. DIAGNOSTICS EKG reveals sinus mechanism with no acute ST or T-wave abnormalities. Chest xray negative for an acute process. Laboratory reviewed, CBC unremarkable, sodium 136, potassium 4.5, creatinine 0.78, troponin 0.088, 0.342, 0.271, LDL 140, HDL 49 and d-dimer 0.21. He takes no daily cardiac medications. REVIEW OF SYSTEMS At the time of my exam: CONSTITUTIONAL: Denies fever or chills. CARDIOVASCULAR: Denies chest pain, shortness of breath, orthopnea, PND or palpitations. RESPIRATORY: Denies cough. GASTROINTESTINAL: Denies abdominal pain, diarrhea, constipation, nausea or vomiting. MUSCULOSKELETAL: Complains of low back pain that shoots down the left leg. NEUROLOGIC: Denies numbness, tingling, headacbe or weakness. ENDOCRINE: Denies fatigue, weight change, polydipsia or polyurina. GENITOURINARY: Denies burning, hematuria or urgency with micturation. HEMATOLOGIC: Denies history of anemia or bleeding. PHYSICAL EXAMINATION Blood pressure 123/70 heart rate 54 afebrile and maintaining oxygen saturation on room air. CONSTITUTIONAL: No apparent distress. HEENT: Head is normocephalic. Pupils are equal, round. Sclerae anicteric. Mucous membranes of the mouth are moist. No JVD. No carotid bruit. CHEST EXAMINATION: Lungs are clear to auscultation. No chest wall tenderness is noted on palpation or with deep breathing. HEART EXAMINATION: Regular rate and rhythm. S1, S2 heard. No murmurs, gallops or rub. ABDOMEN: Soft, nontender. Positive bowel sounds. EXTREMITIES: 2+ peripheral pulses, no lower extremity edema and no calf tenderness. NEUROLOGIC EXAMINATION: Patient is awake, alert and oriented x3. ASSESSMENT NSTEMI Hypertension Dyslipidemia Back pain Chronic nicotine dependence Daily alcohol use PLAN Troponins are elevated suggesting myocardial injury however he has no symptoms of angina and no EKG changes. Recommend proceeding with cardiac catheterization to assess for underlying CAD. I have discussed the risks, benefits and alternative therapies for the above- mentioned procedure and for both sedation/analgesia as well as necessary blood product administration, if indicated, as they pertain to this patient. The patient has indicated understanding and acceptance of the risks and procedures discussed. Obtain 2-D echocardiogram and Doppler study to assess cardiac structure and function. Initiate atorvastatin 80 mg daily. Continue metoprolol 12.5 mg twice a day as previously ordered by the primary care team. Further recommendations to follow based upon clinical course. Smoking and alcohol cessation recommended. Thank you kindly for this consultation. Nurse Practitioner note has been reviewed, I agree with a documented findings and plan of care. Patient was seen and examined. Past Medical History Past Medical History: GERD/Reflux Additional Past Medical History / Comment(s): Palpitations in his 20s and wore a holter monitor that did not show arrhythmia, low back pain with L sided sciatica occasionally. History of Any Multi-Drug Resistant Organisms: None Reported Additional Past Surgical History / Comment(s): HPV/mole removal Past Anesthesia/Blood Transfusion Reactions: No Reported Reaction Smoking Status: Current every day smoker - Past Family History Mother Family Medical History: Cancer Additional Family Medical History / Comment(s): Mother from renal cancer at the age of 59yrs. Father History Unknown: Yes Medications and Allergies Home Medications Medication Instructions Recorded Confirmed Type Venlafaxine HCl [Effexor XR] 37.5 mg PO DAILY 07/30/20 07/30/20 History Venlafaxine HCl [Effexor XR] 150 mg PO DAILY 07/30/20 07/30/20 History clonazePAM [KlonoPIN] 1 mg PO TID 07/30/20 07/30/20 History Allergies Allergy/AdvReac Type Severity Reaction Status Date / Time No Known Allergies Allergy Verified 07/30/20 13:10 Physical Exam Vitals: Vital Signs Temp Pulse Resp BP Pulse Ox 07/31/20 07:18 123/82 03/24/21 22:31 77 16 140/86 07/30/20 21:44 68 16 146/103 07/30/20 18:10 97.5 F L 72 18 130/91 98 07/30/20 13:46 82 18 164/100 07/30/20 13:00 82 18 176/114 96 07/30/20 12:26 18 189/132 07/30/20 10:21 98.5 F 99 18 180/130 99 Intake and Output 07/30/20 07/31/20 07/31/20 22:59 06:59 14:59 Intake Total 171.14 Balance 171.14 Intake: Intake, IV Titration 171.14 Amount Heparin Sod,Pork in 0.45% 171.14 NaCl 25,000 unit In 0.45 % NaCl 1 250ml.bag @ 10 UNITS/KG/HR 9.979 mls/hr IV .Q24H [facility] Rx#: [id number] Other: Weight 99.79 kg Results 07/30/20 12:42 07/30/20 12:42 Cardiac Enzymes 07/30/20 07/30/20 07/30/20 Range/Units 12:42 12:42 15:30 AST 36 (17-59) U/L Troponin I 0.088 H* 0.342 H* (0.000-0.034) ng/mL 07/30/20 Range/Units 19:45 AST (17-59) U/L Troponin I 0.271 H* (0.000-0.034) ng/mL Coagulation 07/31/20 Range/Units 07:22 APTT 25.8 (22.0-30.0) sec Lipids 07/30/20 Range/Units 12:42 Triglycerides 342 H (<150) mg/dL Cholesterol 257 H (<200) mg/dL HDL Cholesterol 49 (40-60) mg/dL CBC 07/30/20 Range/Units 12:42 WBC 8.1 (3.8-10.6) k/uL RBC 5.44 (4.30-5.90) m/uL Hgb 17.2 (13.0-17.5) gm/dL Hct 51.2 (39.0-53.0) % Plt Count 289 (150-450) k/uL Comprehensive Metabolic Panel 07/30/20 Range/Units 12:42 Sodium 136 L (137-145) mmol/L Potassium 4.5 (3.5-5.1) mmol/L Chloride 101 (98-107) mmol/L Carbon Dioxide 21 L (22-30) mmol/L BUN 15 (9-20) mg/dL Creatinine 0.78 (0.66-1.25) mg/dL Glucose 102 H (74-99) mg/dL Calcium 10.0 (8.4-10.2) mg/dL AST 36 (17-59) U/L ALT 26 (4-49) U/L Alkaline Phosphatase 58 (38-126) U/L Total Protein 8.0 (6.3-8.2) g/dL Albumin 4.8 (3.5-5.0) g/dL Current Medications Generic Name Dose Route Start Last Admin Trade Name Freq PRN Reason Stop Dose Admin Aspirin 325 mg 07/31/20 09:00 Aspirin 325 Mg Tab PO DAILY [facility] Clonazepam 1 mg 07/30/20 18:00 07/30/20 22:30 Clonazepam 0.5 Mg Tab PO 1 mg TID G[facility] Administration Heparin Sodium (Porcine) 0 unit 07/30/20 13:55 07/31/20 07:58 Heparin Sodium,Porcine 5,000 Unit/Ml 1 Ml Vial IV 4,000 unit Q6HR PRN Administration Low PTT Protocol Heparin Sodium/Sodium Chloride 250 mls @ 9.979 mls/hr 07/30/20 14:00 07/31/20 07:50 25,000 unit/ Sodium Chloride IV 13 units/kg/hr .Q24H [facility] 12.973 mls/hr Titration Protocol 10 UNITS/KG/HR Metoprolol Tartrate 12.5 mg 07/30/20 23:00 Metoprolol Tartrate 12.5 Mg Tab PO BID [facility] Morphine Sulfate 4 mg 07/30/20 13:55 07/31/20 04:08 Morphine Sulfate 4 Mg/Ml Syringe IV 4 mg Q4HR PRN Administration Pain Nitroglycerin 0.4 mg 07/30/20 13:55 Nitroglycerin Sl Tabs 0.4 Mg Tab SUBLINGUAL Q5M PRN Chest Pain Venlafaxine HCl 37.5 mg 07/31/20 09:00 Venlafaxine Hcl Er 37.5 Mg Cap PO DAILY [facility] Venlafaxine HCl 150 mg 07/31/20 09:00 Venlafaxine Hcl Er 150 Mg Cap PO DAILY G[facility] Intake and Output 07/30/20 07/31/20 07/31/20 22:59 06:59 14:59 Intake Total 171.14 Balance 171.14 Intake: Intake, IV Titration 171.14 Amount Heparin Sod,Pork in 0.45% 171.14 NaCl 25,000 unit In 0.45 % NaCl 1 250ml.bag @ 10 UNITS/KG/HR 9.979 mls/hr IV .Q24H [facility] Rx#: [id number] Other: Weight 99.79 kg Patient Weight 08/01/20 06:59 Weight 99.79 kg 07/30/20 12:42 07/30/20 12:42
--- NOTE | 2020-07-31 16:08 | P.PN ---
Progress Note - Text Patient presented to the hospital with chronic back pain. Cardiology was consulted on account of elevated troponins Twelve-lead EKG was normal troponins showed a rise and fall pattern 0.08, 0.342, 0.27 LDL 140, HDL 49, triglycerides 342 Normal d-dimer Cardiac catheterization revealed LVEDP 23 mmHg Focal mid LAD stenosis, 30% Mid RCA 20% 2-D echo/Doppler Low normal LV systolic function, moderate LVH Plan Smoking cessation Minimize alcohol consumption Statin therapy for coronary artery disease
[2020-07-31] MEDS: FAMOTIDINE 20 MG/2 ML VIAL IV SCH (19:55)
[2020-07-31] MEDS: HEPARIN SODIUM,PORCINE 5,000 UNIT/ML 1 ML VIAL SQ SCH (21:19)
[2020-07-31 22:19] VITALS: RESP 18
[2020-08-01] MEDS ORDERED: HEPARIN SODIUM,PORCINE 10,000 UNIT in SODIUM CHLORIDE 0.9% 1,000 ML IRRIGATION PRN (07:00)
[2020-08-01] MEDS ORDERED: HEPARIN SODIUM,PORCINE 2,500 UNIT in SODIUM CHLORIDE 0.9% 250 ML IRRIGATION PRN (07:00)
[2020-08-01] MEDS ORDERED: ASPIRIN 81 MG PO SCH (09:00)
[2020-08-01 09:03] LABS: African American GFR (CKD) >90 (>60 ml/min/1.73 sqM); Anion Gap 6 mmol/L; Blood Urea Nitrogen 14 mg/dL (9-20); Calcium 9.1 mg/dL (8.4-10.2); Carbon Dioxide 26 mmol/L (22-30); Chloride 104 mmol/L (98-107); Glucose 102 mg/dL (74-99); Non-African American GFR(CKD) >90 (>60 ml/min/1.73 sqM); Potassium 4.3 mmol/L (3.5-5.1); Sodium 136 mmol/L (137-145)
[2020-08-01] MEDS: MORPHINE SULFATE 4 MG/ML SYRINGE IV PRN ×2 (09:52→15:47)
[2020-08-01] MEDS: ATORVASTATIN 80 MG TAB PO SCH (09:54)
[2020-08-01] MEDS: clonazePAM 0.5 MG TAB PO SCH ×2 (09:55→15:47)
[2020-08-01] MEDS: HEPARIN SODIUM,PORCINE 5,000 UNIT/ML 1 ML VIAL SQ SCH (09:55)
[2020-08-01] MEDS: FAMOTIDINE 20 MG/2 ML VIAL IV SCH (09:55)
[2020-08-01] MEDS: VENLAFAXINE HCL ER 150 MG CAP PO SCH (09:55)
[2020-08-01] MEDS: VENLAFAXINE HCL ER 37.5 MG CAP PO SCH (09:55)
[2020-08-01] MEDS: METOPROLOL TARTRATE 12.5 MG TAB PO SCH (09:55)
--- NOTE | 2020-08-01 12:01 | P.PN ---
Subjective Progress Note Date: 08/01/20 HISTORY OF PRESENT ILLNESS: Patient is status post cardiac catheterization revealing mild nonobstructive coronary artery disease including 20% stenosis of mid RCA and 30% stenosis of mid LAD. Patient denies chest pain or pressure. He denies shortness of breath. Echocardiogram completed revealing ejection fraction 50-55%, trace mitral regurgitation, and trace tricuspid regurgitation. PHYSICAL EXAM: VITAL SIGNS: Reviewed. GENERAL: Well-developed in no acute distress. NECK: Supple. No JVD or thyromegaly LUNGS: Respirations even and unlabored. Lungs essentially clear to auscultation bilaterally. HEART: Regular rate and rhythm. S1 and S2 heard. EXTREMITIES: Normal range of motion. No clubbing or cyanosis. Peripheral pulses intact. No lower extremity edema. Right radial cath site with pulse present. ASSESSMENT: Elevated troponins, status post cardiac catheterization revealing mild nonobstructive coronary artery disease Hypertension Hyperlipidemia Back pain Chronic nicotine dependence Daily alcohol use PLAN: Continue current cardiac medications Smoking cessation recommended Alcohol abstinence encouraged Patient may be discharged home today from a cardiac standpoint. He is to follow up on an outpatient basis. Nurse practitioner note has been reviewed by physician. Signing provider agrees with the documented findings, assessment, and plan of care. Objective - Vital Signs Vital signs: Vital Signs Temp 97.6 F 08/01/20 04:00 Pulse 60 08/01/20 04:00 Resp 18 08/01/20 04:00 BP 141/87 08/01/20 04:00 Pulse Ox 96 08/01/20 04:00 Intake & Output 07/31/20 08/01/20 08/01/20 18:59 06:59 18:59 Intake Total 511.14 10 10 Balance 511.14 10 10 Weight 99.79 kg 98.8 kg Intake: IV 100 10 10 0.9 10 Invasive Line 1 10 Intake, IV Titration 171.14 Amount Heparin Sod,Pork in 0.45% 171.14 NaCl 25,000 unit In 0.45 % NaCl 1 250ml.bag @ 10 UNITS/KG/HR 9.979 mls/hr IV .Q24H [facility] Rx#: [id number] Oral 240 Other: Voiding Method Toilet # Voids 2 1 - Labs CBC & Chem 7: 07/30/20 12:42 08/01/20 07:37 Labs: Abnormal Lab Results - Last 24 Hours (Table) 08/01/20 Range/Units 07:37 Sodium 136 L (137-145) mmol/L Glucose 102 H (74-99) mg/dL
--- NOTE | 2020-08-01 12:21 | MR ---
EXAMINATION TYPE: MR lumbar spine wo con DATE OF EXAM: 08/01/2020 COMPARISON: NONE HISTORY: Low back pain with sciatica TECHNIQUE: T1 and T2 axial and sagittal images of the lumbar spine are submitted. FINDINGS: There is no abnormal signal seen within the visualized spinal cord or paraspinal soft tissu es. Simple renal cyst on the right. Images of left kidney are partially included. There is an anterio r mass extending off the cortex of the left kidney which appear suspicious for a neoplasm. At L1-2 there is no disc herniation or canal stenosis. This signal preserved. Mild hypertrophic spencer e of the facets. No foraminal encroachment. At L2-3 there is no disc herniation or canal stenosis. This signal preserved. Mild hypertrophic spencer e of the facets. No foraminal encroachment At L3-4 there is no disc herniation or canal stenosis. This signal preserved. Mild hypertrophic spencer e of the facets. No foraminal encroachment At L4-5 there is no disc herniation or canal stenosis. This signal preserved. Mild hypertrophic spencer e of the facets. No foraminal encroachment At L5-S1 there is degenerative disc disease. There is a large left paracentral disc herniation with a nterior compression of thecal sac. Suspicion for an extruded fragment compressing the exiting left ne rve root. Appears to be abnormal signal extending superiorly along the posterior margin of the L5 arun tebral segment paracentrally to the left suggestive of either a extruded or sequestered fragment. Th ere is hypertrophic change of the facets. Moderate to severe left foraminal encroachment. IMPRESSION: 1. Large left paracentral disc herniation resulting in left lateral significant thecal sac compressio n, severe left foraminal encroachment an extruded disc fragment extending along the posterior margin of the L5 vertebral body. Suspect compression of the exiting left nerve root at this level correlate for radiculopathy. 2. There is a 3.5 cm mass involving the left kidney suspicious for neoplasm possibly malignant recom mend CT scan of the abdomen pelvis. Report called to the patient's nurse 08/01/2020 at 12:15 PM.
--- NOTE | 2020-08-01 12:43 | P.PN ---
Subjective From records This is a pleasant 49-year-old patient of Dr. Freeman Petit. Patient is was a smoker and history of anxiety depression for which he takes medicines. Last fall patient started having pain in the lower back on the left side while doing some yard work. It has been present rather constantly but progressively is guarded worse. Patient did quite see a chiropractor twice not with much help. He also did: See his family doctor Dr. Petit who ordered some x-rays with him. 2 days he noticed that patient's finding difficulty to walk with a pain rating down left leg. Also area of burning sensation in the lower part of the leg and some numbness. No change in her bowel or bladder pattern. Patient was playing active hockey in the past patient also recently been having episodes of heartburn which has been present on and off. He sometimes takes Tums for the same. Patient's troponin started to come back positive. He has had these symptoms on and off for some time. Subjective: 07/31/2020 This is a pleasant 49 years old male with multiple medical problems presents with back pain acute on chronic after he did some yard work and found to have elevated troponin. When I saw him this morning he denies any complaint to me, he denies chest pain or dyspnea or coughing. No pain. Patient underwent cardiac cath today per billboard poster helper showing mild nonobstructive coronary artery disease about 30% in the middle LAD stenosis with elevated left side filling the pressure and no stent or PCI was placed and medical management is recommended by billboard poster helper. D-dimer was checked and it was negative at 0.21 Orthopedic team already on the case 08/01/2020 Patient with no chest pain or dyspnea is status post cardiac cath showing 30% stenosis in the LAD, billboard poster helper. The patient for discharge Patient also has been complaining of from low back pain radiating to the left leg associated with some numbness which is feeling slightly better today. Orthopedic team on the case and they ordered MRI of the lumbar spine: 1. Large left paracentral disc herniation and result in left lateral significant thecal sac compression with severe left foraminal encroachment and extubated disc fragments extending along the posterior margin of the L5 vertebra body. Suspect compression of the existing left nerve root and this level correlating 4 radiculopathy incidental finding of 3.5 left kidney mass suspicious for malignancy. 2. incidental finding of 3.5 cm left kidney mass suspicious for malignancy on CT of the abdomen BMP is a stable creatinine 0.9 Review of systems CONSTITUTIONAL: No fever, no malaise, no fatigue. HEENT: No recent visual problems or hearing problems. Denied any sore throat. CARDIOVASCULAR: No orthopnea, PND, no palpitations, no syncope. PULMONARY: No shortness of breath, no cough, no hemoptysis. GASTROINTESTINAL: No diarrhea, no nausea, no vomiting, no abdominal pain. Normoactive bowel sounds. NEUROLOGICAL: No headaches, no weakness, no numbness. Active Medications Generic Name Dose Route Start Last Admin Trade Name Freq PRN Reason Stop Dose Admin Aspirin 81 mg 08/01/20 09:00 08/01/20 09:55 Aspirin 81 Mg PO 81 mg DAILY GRAEME Administration Atorvastatin Calcium 80 mg 07/31/20 10:15 08/01/20 09:54 Atorvastatin 80 Mg Tab PO 80 mg DAILY GRAEME Administration Clonazepam 1 mg 07/30/20 18:00 08/01/20 09:55 Clonazepam 0.5 Mg Tab PO 1 mg TID GRAEME Administration Famotidine 20 mg 07/31/20 21:00 08/01/20 09:55 Famotidine 20 Mg/2 Ml Vial IV 20 mg Q12HR GRAEME Administration Heparin Sodium (Porcine) 5,000 unit 07/31/20 21:00 08/01/20 09:55 Heparin Sodium,Porcine 5,000 Unit/Ml 1 Ml Vial SQ 5,000 unit Q12HR GRAEME Administration Heparin Sodium (Porcine) 10, 1,001 mls @ 999 mls/hr 08/01/20 07:00 000 unit/ Sodium Chloride IRRIGATION 08/01/20 23:00 ONCE PRN INTRA-OP Heparin Sodium (Porcine) 2,500 250.5 mls @ 250 mls/hr 08/01/20 07:00 unit/ Sodium Chloride IRRIGATION 08/01/20 23:00 ONCE PRN INTRA-OP Metoprolol Tartrate 12.5 mg 07/30/20 23:00 08/01/20 09:55 Metoprolol Tartrate 12.5 Mg Tab PO 12.5 mg BID GRAEME Administration Miscellaneous Information 1 each 07/31/20 12:02 Rx Info: Iv Contrast Was Given 1 Each Mis MISCELLANE 08/02/20 12:02 DAILY PRN Per Protocol Morphine Sulfate 4 mg 07/30/20 13:55 08/01/20 09:52 Morphine Sulfate 4 Mg/Ml Syringe IV 4 mg Q4HR PRN Administration Pain Nitroglycerin 0.4 mg 07/30/20 13:55 Nitroglycerin Sl Tabs 0.4 Mg Tab SUBLINGUAL Q5M PRN Chest Pain Venlafaxine HCl 37.5 mg 07/31/20 09:00 08/01/20 09:55 Venlafaxine Hcl Er 37.5 Mg Cap PO 37.5 mg DAILY GRAEME Administration Venlafaxine HCl 150 mg 07/31/20 09:00 08/01/20 09:55 Venlafaxine Hcl Er 150 Mg Cap PO 150 mg DAILY GRAEME Administration Objective - Vital Signs Vital signs: Vital Signs Temp 97.6 F 08/01/20 08:00 Pulse 63 08/01/20 08:00 Resp 18 08/01/20 08:00 BP 143/82 08/01/20 08:00 Pulse Ox 95 08/01/20 08:00 Intake & Output 07/31/20 08/01/20 08/01/20 18:59 06:59 18:59 Intake Total 511.14 10 10 Balance 511.14 10 10 Weight 99.79 kg 98.8 kg Intake: IV 100 10 10 0.9 10 Invasive Line 1 10 Intake, IV Titration 171.14 Amount Heparin Sod,Pork in 0.45% 171.14 NaCl 25,000 unit In 0.45 % NaCl 1 250ml.bag @ 10 UNITS/KG/HR 9.979 mls/hr IV .Q24H GRAEME Rx#: [id number] Oral 240 Other: Voiding Method Toilet # Voids 2 1 - Exam GENERAL: The patient is alert and oriented x3, not in any acute distress. Well developed, well nourished. HEENT: Pupils are round and equally reacting to light. EOMI. No scleral icterus. No conjunctival pallor. Normocephalic, atraumatic. No pharyngeal erythema. No thyromegaly. CARDIOVASCULAR: S1 and S2 present. No murmurs, rubs, or gallops. PULMONARY: Chest is clear to auscultation, no wheezing or crackles. ABDOMEN: Soft, nontender, nondistended, normoactive bowel sounds. No palpable organomegaly. MUSCULOSKELETAL: No joint swelling or deformity. EXTREMITIES: No cyanosis, clubbing, or pedal edema. NEUROLOGICAL: Gross neurological examination did not reveal any focal deficits. SKIN: No rashes. no petechiae. - Labs CBC & Chem 7: 07/30/20 12:42 08/01/20 07:37 Labs: Abnormal Lab Results - Last 24 Hours (Table) 08/01/20 Range/Units 07:37 Sodium 136 L (137-145) mmol/L Glucose 102 H (74-99) mg/dL Assessment and Plan Assessment: -non-obstructive mild coronary artery disease with 30% stenosis of the mid LAD, medical management is recommended by billboard poster helper. -Acute and chronic low back pain with radiculopathy , secondary to left disc herniation at L5, orthopedic team on the case 3.5 left kidney mass suspicious for neoplasm , consult urology service -Depression and anxiety, continue with home medications and they recommended MRI of the lumbar spine which is pending -Nicotine dependence, continue with nicotine patch, patient is counseled DVT prophylaxis: Subcutaneous heparin GI prophylaxis: Pepcid PT/OT: Pending Prognosis is guarded
--- NOTE | 2020-08-01 13:16 | P.CNOR ---
History of Present Illness - [facility] Consult date: 08/01/20 Consult reason: low back pain History of present illness: Patient's very pleasant 49-year-old man is seen and examined today at bedside. He presented yesterday regards to low back pain and left lower extremity ra dicular pain. He was found have somewhat elevated troponins and was having workup for this in that regard. He had a catheterization yesterday as well. He continues to have pain in his back and his left lower extremity. The pain at his back and lower extremity has been present through the past few days but started back in March. He was having back pain with some articular symptoms that was significant worsened over the past 2 days. The pain is so severe it is left lower extremity that he presented to the hospital. He was not having any chest pain or shortness of breath. He is not having any fevers or chills. He is having severe pain in his left leg. He denies weakness. He denies any changes in his bowel or bladder function. Review of Systems As stated per HPI he denies any chest pain or shortness of breath. He says his mother had renal cancer. Past Medical History Past Medical History: GERD/Reflux Additional Past Medical History / Comment(s): Palpitations in his 20s and wore a holter monitor that did not show arrhythmia, low back pain with L sided sciatica occasionally. History of Any Multi-Drug Resistant Organisms: None Reported Additional Past Surgical History / Comment(s): HPV/mole removal Past Anesthesia/Blood Transfusion Reactions: No Reported Reaction Smoking Status: Current every day smoker - Past Family History Mother Family Medical History: Cancer Additional Family Medical History / Comment(s): Mother from renal cancer at the age of 59yrs. Father History Unknown: Yes Medications and Allergies Home Medications Medication Instructions Recorded Confirmed Type Venlafaxine HCl [Effexor XR] 37.5 mg PO DAILY 07/30/20 07/30/20 History Venlafaxine HCl [Effexor XR] 150 mg PO DAILY 07/30/20 07/30/20 History clonazePAM [KlonoPIN] 1 mg PO TID 07/30/20 07/30/20 History predniSONE 10 mg PO DIRECTED #24 tab 08/01/20 Rx Allergies Allergy/AdvReac Type Severity Reaction Status Date / Time No Known Allergies Allergy Verified 07/30/20 13:10 Physical Examination Osteopathic Statement: *. No significant issues noted on an osteopathic structural exam other than those noted in the History and Physical/Consult. - L Spine: dermatomal strength & reflexes left Strength: hip flexion: 5/5 (5 and 5 strength throughout his bilateral lower extremity. His a positive Lasegue's sign positive straight leg raise. No weakness.) Results - Labs Labs: Abnormal Lab Results - Last 24 Hours (Table) 08/01/20 Range/Units 07:37 Sodium 136 L (137-145) mmol/L Glucose 102 H (74-99) mg/dL H & H 07/30/20 Range/Units 12:42 Hgb 17.2 (13.0-17.5) gm/dL Hct 51.2 (39.0-53.0) % Result Diagrams: 07/30/20 12:42 08/01/20 07:37 - Diagnostic results Lumbar MRI with/without contrast: report reviewed, image reviewed (Lumbar MRI done today shows large disc herniation L5-S1 with disc extrusion causing severe left foraminal stenosis.) Assessment and Plan Assessment: Left lower extremity radiculopathy without new weakness Herniated nucleus pulposis L5-S1 which correlate well with his left lower extremity radiculopathy Left lower extremity pain Elevated troponins Some soft tissue change at his kidney Plan: Left lower extremity radiculopathy without new weakness Herniated nucleus pulposis L5-S1 which correlate well with his left lower extremity radiculopathy Left lower extremity pain Elevated troponins Some soft tissue change at his kidney The patient's cardiac issues are being managed with cardiology and he seems appropriate for discharge without obvious event. He is having further workup and treatment with urology on an outpatient and I think that is appropriate. In terms of his low back and lower extremities, he has a large disc herniation L5-S1 which is his primary source of symptoms. I think that he would be a candidate for laminectomy decompression with discectomy at L5-S1 if conservative measures were to fail. He is not having acute weakness and I think he should try to see if some of the symptoms settle further with steroid medication. We'll give him site Medrol here in the hospital and order a tapering dose of prednisone post hospitalization. He is also candidate for interventional pain management in the form of epidural steroid injections and we will consult pain service for possible injection. This injection could be done here while he is inpatient or as an outpatient if he is able to be discharged prior to it. I do not plan emergent surgical intervention and I think it would be okay from a spine surgery standpoint for the patient is discharged with close follow-up with our service in the next 7-10 days. I discussed this with him at length and answered his questions. It is okay for him to mobilize and ambulate to his tolerance. He should take his tapering oral steroid to see if that alleviates his symptoms and we can see him closely in the office. I answered his questions to the best my ability healing she can understand and he is agreeable to plan.
[2020-08-01] MEDS: methylPREDNISolone SOD SUCCI 125 MG/2 ML VIAL IV SCH ×2 (15:02→16:03)
[2020-08-01] MEDS ORDERED: ALPRAZolam 0.25 MG TAB PO STA (15:08)
[2020-08-01 15:44] VITALS: BP 129/85; PULSE 64; TEMP 97.2
[2020-08-01] MEDS ORDERED: traMADol 50 MG TAB PO PRN (17:31)
[2020-08-01] MEDS ORDERED: ACETAMINOPHEN TAB 325 MG TAB PO PRN (17:32)
--- NOTE | 2020-08-01 19:31 | P.GSCN ---
History of Present Illness Consult date: 08/01/20 Reason for Consult: Left renal mass Requesting physician: Chito E Sheet History of present illness: The patient is a 49-year-old white male admitted with back pain radiating into the left lower extremity. MRI revealed L5-S1 degenerative disc disease with disc herniation. Troponin levels were elevated, so he underwent cardiac catheterization, revealing mild nonobstructive coronary artery disease. There was no need to perform an angioplasty. 2-D echo/Doppler revealed low normal LV systolic function, moderate LVH. The MRI also revealed a 3.5 cm left renal lesion suspicious for renal cell carcinoma. The patient has an unremarkable urologic history but his mother of renal cell carcinoma 19 years ago. Review of Systems - Constitutional Denies weight gain, Denies weight loss - Gastrointestinal Denies nausea, Denies vomiting - Genitourinary Denies flank pain, Denies hematuria Past Medical History Past Medical History: GERD/Reflux Additional Past Medical History / Comment(s): Palpitations in his 20s and wore a holter monitor that did not show arrhythmia, low back pain with L sided sciatica occasionally. History of Any Multi-Drug Resistant Organisms: None Reported Additional Past Surgical History / Comment(s): HPV/mole removal Past Anesthesia/Blood Transfusion Reactions: No Reported Reaction Smoking Status: Current every day smoker - Past Family History Mother Family Medical History: Cancer Additional Family Medical History / Comment(s): Mother from renal cancer at the age of 59yrs. Father History Unknown: Yes Medications and Allergies Home Medications Medication Instructions Recorded Confirmed Type Venlafaxine HCl [Effexor XR] 37.5 mg PO DAILY 07/30/20 07/30/20 History Venlafaxine HCl [Effexor XR] 150 mg PO DAILY 07/30/20 07/30/20 History clonazePAM [KlonoPIN] 1 mg PO TID 07/30/20 07/30/20 History Acetaminophen Tab [Tylenol] 650 mg PO Q6HR PRN #50 tab 08/01/20 Rx Aspirin 81 mg PO DAILY #30 chew 08/01/20 Rx Atorvastatin [Lipitor] 80 mg PO DAILY #30 tab 08/01/20 Rx Famotidine [Pepcid] 20 mg PO BID #60 tablet 08/01/20 Rx Lidocaine 5% Patch [Lidoderm 5% 1 patch TOPICAL DAILY 5 Days #5 08/01/20 Rx Patch] patch Metoprolol Tartrate [Lopressor] 12.5 mg PO BID #60 tab 08/01/20 Rx predniSONE 10 mg PO DIRECTED #24 tab 08/01/20 Rx traMADol HCl [Ultram] 50 mg PO TID PRN 7 Days #21 tab 08/01/20 Rx Allergies Allergy/AdvReac Type Severity Reaction Status Date / Time No Known Allergies Allergy Verified 07/30/20 13:10 Surgical - Exam Vital Signs Temp Pulse Resp BP Pulse Ox 98.5 F 99 18 180/130 99 07/30/20 10:21 07/30/20 10:21 07/30/20 10:21 07/30/20 10:21 07/30/20 10:21 - General well developed, well nourished, no distress - Neck no masses, trachea midline - Respiratory normal respiratory effort - Abdomen Abdomen: soft, non tender, no guarding, no rigid, no rebound - Psychiatric oriented to time, oriented to person, oriented to place, speech is normal, memory intact Results - Labs 07/30/20 12:42 08/01/20 07:37 Abnormal Lab Results - Last 24 Hours (Table) 08/01/20 Range/Units 07:37 Sodium 136 L (137-145) mmol/L Glucose 102 H (74-99) mg/dL Diabetes panel 08/01/20 Range/Units 07:37 Sodium 136 L (137-145) mmol/L Potassium 4.3 (3.5-5.1) mmol/L Chloride 104 (98-107) mmol/L Carbon Dioxide 26 (22-30) mmol/L BUN 14 (9-20) mg/dL Creatinine 0.91 (0.66-1.25) mg/dL Glucose 102 H (74-99) mg/dL Calcium 9.1 (8.4-10.2) mg/dL Calcium panel 08/01/20 Range/Units 07:37 Calcium 9.1 (8.4-10.2) mg/dL Pituitary panel 08/01/20 Range/Units 07:37 Sodium 136 L (137-145) mmol/L Potassium 4.3 (3.5-5.1) mmol/L Chloride 104 (98-107) mmol/L Carbon Dioxide 26 (22-30) mmol/L BUN 14 (9-20) mg/dL Creatinine 0.91 (0.66-1.25) mg/dL Glucose 102 H (74-99) mg/dL Calcium 9.1 (8.4-10.2) mg/dL Adrenal panel 08/01/20 Range/Units 07:37 Sodium 136 L (137-145) mmol/L Potassium 4.3 (3.5-5.1) mmol/L Chloride 104 (98-107) mmol/L Carbon Dioxide 26 (22-30) mmol/L BUN 14 (9-20) mg/dL Creatinine 0.91 (0.66-1.25) mg/dL Glucose 102 H (74-99) mg/dL Calcium 9.1 (8.4-10.2) mg/dL - Imaging Chest x-ray: report reviewed Assessment and Plan (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 He is of course concerned given that his mother of renal cell carcinoma. I explained to them that renal cell carcinomas are frequently diagnosed as incidental findings, and as a result are associated with improved prognosis. The chest x-ray shows no metastases. He is being discharged home this evening. Arrangements will be made next week for him to undergo a CT scan of the abdomen for further evaluation, and he will subsequently follow up with me in my office. Time with Patient: Greater than 30
--- NOTE | 2020-08-02 00:58 | P.DS ---
Providers Date of admission: 07/31/20 13:10 Attending physician: Kiko Anne Consults: 07/30/20 13:55 Consult Physician Urgent Consulting Provider: Dilan Davenport Consult Reason/Comments: elevated trop Do you want consulting provider notified?: Yes 07/30/20 22:11 Consult Physician Routine Consulting Provider: Cy Mak Consult Reason/Comments: Acute on chronic low back pain with radiculopathy Do you want consulting provider notified?: Yes 08/01/20 12:32 Consult Physician Urgent Consulting Provider: Dalton Velásquez Consult Reason/Comments: Left kidney mass Do you want consulting provider notified?: Yes Primary care physician: Taurus Petit Hospital Course: Diagnoses: - non-obstructive mild coronary artery disease with 30% stenosis of the mid LAD, medical management is recommended by block sawyer. - Acute and chronic low back pain with radiculopathy , no weakness. secondary to left disc herniation at L5, orthopedic team recommended conservative treatment for now - Herniated nucleus pulposis L5-S1 which correlate well with his left lower extremity radiculopathy - 3.5 left kidney mass suspicious for neoplasm , patient is aware will follow up with urology as an outpatient - Depression and anxiety, continue with home medications and they recommended MRI of the lumbar spine which is pending - Nicotine dependence, continue with nicotine patch, patient is counseled Hospital course: This is a pleasant 49-year-old patient of Dr. Freeman Petit. Patient is was a smoker and history of anxiety depression for which he takes medicines. Last fall patient started having pain in the lower back on the left side while doing some yard work. Patient had a lumbar MRI showed (( 1.large left paracentral disc herniation resulting in left lateral significant thecal sac compression, severe left foraminal encroachment. Suspect compression of the existing left nerve root at L5, correlate 4 radiculopathy 2. There is 3.5 cm mass involving the left kidney suspicious for neoplasm possibly malignant )) orthopedic team consulted and Dr. Mak recommended steroids and trial of prednisone on pain management consult and follow-up as an outpatient in 7-10 days. Patient was eager to go home today and does not want to wait for the pain team to see him in the patient and he wants to follow up as an outpatient. Contact information for Dr. Knapp neurologist and pain management referral is provided and patient agrees. Patient is discharged on tapering prednisone. Patient also discharged on short course of Ultram, Tylenol, lidocaine patch, risks of narcotics including but not limited to respiratory depression and/or are explained for the patient, patient was instructed to avoid benzodiazepines as his increased risk of respiratory depression and and he verbalized und erstanding and acceptance. Goals for pain management also discussed with the patient and sister at bedside extensively. Also there was an incidental finding of left kidney mass suspicious for neopla sm, patient is asymptomatic and denies urinary symptoms or flank pain. Dr. velásquez urologist was contacted by staff and they recommended outpatient follow- up, patient and sister at bedside (sister involved upon patient request) are aware of this diagnosis and possibility of cancer, patient was very self committed to call the neurologist this week and especially Tuesday for close follow-up. Of note patient mother was diagnosed with renal cell carcinoma as per sister Also block sawyer evaluated the patient for elevated troponin. Cardiac cath howing mild nonobstructive coronary artery disease about 30% in the middle LAD stenosis with elevated left side filling the pressure and no stent or PCI was placed and medical management is recommended by block sawyer. D-dimer was checked and it was negative at 0.21 On the day of discharge patient denies chest pain or dyspnea, no abdominal pain or flank pain. No nausea vomiting, no diarrhea or dysuria or change in urine or bowel habits. No fever. He is still have some low back pain needed pain medication, patient was seen walking the hallway. Physical therapy evaluated the patient and recommended home . However patient did not want to wait for pain management to see him in patient and he was eager to be discharged home today. Sister at bedside and she aware of all his problems and management plan patient was cleared for discharge by block sawyer and orthopedic team Problems and management plan were discussed with the patient and sister at bedside and they verbalized understanding and acceptance Patient was found stable and can be discharged home in guarded prognosis however he needs follow-up as an outpatient. Patient was instructed to follow up with PCP Dr. Petit within one week and patient agrees Patient agrees with the appointments made for him with Dr. Barton on 08/11 under took only / states he will follow-up. Patient was instructed to follow up with urologist Dr. Velásquez within one week, patient told me he is going to call on this Tuesday to make an appointment as soon as possible.Staff contacted urologist office and they have informed of this will call patient for appointment Also patient was instructed to follow up with block sawyer Dr. Valles N1 to 2 weeks and he agrees Also I called Dr. Petit and discussed the case with him and the incidental findings of left renal mass suspicious for cancer with recommendation for referral to urologist and he kindly took note of this. Also discussed orthopedic problem of low back pain and his cardiac findings as above. Physical exam Gen: patient is a AAOx3, no distress CVS: S1-S2, RRR, no murmur Lungs: B/L CTA, no wheezing Abdomen: soft, no distention, no tenderness, positive bowel sounds Extremity: no leg edema or induration Time spent more than 35 minutes Patient Condition at Discharge: Fair Plan - Discharge Summary Discharge Rx Participant: No New Discharge Prescriptions: New Metoprolol Tartrate [Lopressor] 12.5 mg PO BID #60 tab Famotidine [Pepcid] 20 mg PO BID #60 tablet Acetaminophen Tab [Tylenol] 650 mg PO Q6HR PRN #50 tab PRN Reason: Fever And/ Or Pain predniSONE 10 mg PO DIRECTED #24 tab Aspirin 81 mg PO DAILY #30 chew Atorvastatin [Lipitor] 80 mg PO DAILY #30 tab Lidocaine 5% Patch [Lidoderm 5% Patch] 1 patch TOPICAL DAILY 5 Days #5 patch traMADol HCl [Ultram] 50 mg PO TID PRN 7 Days #21 tab PRN Reason: Severe Pain Continue Venlafaxine HCl [Effexor XR] 37.5 mg PO DAILY clonazePAM [KlonoPIN] 1 mg PO TID Venlafaxine HCl [Effexor XR] 150 mg PO DAILY Discharge Medication List Venlafaxine HCl [Effexor XR] 37.5 mg PO DAILY 07/30/20 [History] Venlafaxine HCl [Effexor XR] 150 mg PO DAILY 07/30/20 [History] clonazePAM [KlonoPIN] 1 mg PO TID 07/30/20 [History] Acetaminophen Tab [Tylenol] 650 mg PO Q6HR PRN #50 tab 08/01/20 [Rx] Aspirin 81 mg PO DAILY #30 chew 08/01/20 [Rx] Atorvastatin [Lipitor] 80 mg PO DAILY #30 tab 08/01/20 [Rx] Famotidine [Pepcid] 20 mg PO BID #60 tablet 08/01/20 [Rx] Lidocaine 5% Patch [Lidoderm 5% Patch] 1 patch TOPICAL DAILY 5 Days #5 patch 08/01/20 [Rx] Metoprolol Tartrate [Lopressor] 12.5 mg PO BID #60 tab 08/01/20 [Rx] predniSONE 10 mg PO DIRECTED #24 tab 08/01/20 [Rx] traMADol HCl [Ultram] 50 mg PO TID PRN 7 Days #21 tab 08/01/20 [Rx] Follow up Appointment(s)/Referral(s): Daquan Ivory MD [STAFF PHYSICIAN] - 2 Weeks (Office will call Tuesday block sawyer ) Cy Mak DO [Doctor of Osteopathic Medicine] - 08/11/20 1:45 pm Dalton Velásquez MD [STAFF PHYSICIAN] - 1 Week (Patient will be called for a follow up appointment from Dr Velásquez's office per Tammy/recptionist. I will fax demographic and consult note regarding follow up care at the request of Tammy. (urologist ) or for your left kidney mass) Taurus Petit MD [Primary Care Provider] - 08/12/20 11:30 am Ricky Knapp MD [Medical Doctor] - 1 Week (neurologist and pain physician ) Patient Instructions/Handouts: *[facility] - After Heart Catheterization - Guest Attendant Instructions, *[facility] - Managing Your Pain After Surgery Without Opioids, Lumbar Disc Herniation (ED), Degenerative Disc Disease (ED), Decision Aid for Herniated Disc in the Lower Back (GEN) Activity/Diet/Wound Care/Special Instructions: low carbohydrate and heart healthy diet activity is restricted till you see your doctor Discharge Disposition: HOME SELF-CARE
[2020-08-04 13:40] LABS: Parvovirus B-19 IgG Antibodies 0.58 INDEX (<=0.90); Parvovirus B-19 IgM Antibodies 0.19 INDEX (<=0.90)
== END 2020-08-01 19:20 | disposition home or self-care (01) | DRG 552 ==
LOC: EC 10:16 → 3SCARD 15:36 → OBSVTOIN 07-31 13:10 → 3SCARD 07-31 13:33
PROVIDERS: ADMIT Hospitalist; ATTEND Hospitalist
PROC: 4A023N7 Measurement of Cardiac Sampling and Pressure, Left Heart, Percutaneous Approach (ICD-10-PCS; principal; 2020-07-31 13:10)
PROC: B2111ZZ Fluoroscopy of Multiple Coronary Arteries using Low Osmolar Contrast (ICD-10-PCS; principal; 2020-07-31 13:10)
DX: M51.17 Intervertebral disc disorders with radiculopathy, lumbosacral region (principal); D41.02 Neoplasm of uncertain behavior of left kidney; Z20.822 Contact with and (suspected) exposure to COVID-19; M51.37 Other intervertebral disc degeneration, lumbosacral region; G89.29 Other chronic pain; E78.5 Hyperlipidemia, unspecified; K21.9 Gastro-esophageal reflux disease without esophagitis; I25.118 Atherosclerotic heart disease of native coronary artery with other forms of angina pectoris; I10 Essential (primary) hypertension; F32.9 Major depressive disorder, single episode, unspecified; F41.9 Anxiety disorder, unspecified; F17.210 Nicotine dependence, cigarettes, uncomplicated; Z71.6 Tobacco abuse counseling; R77.8 Other specified abnormalities of plasma proteins; Z79.899 Other long term (current) drug therapy; Z80.51 Family history of malignant neoplasm of kidney
CPT/HCPCS: 36415; 71045; 72110; 72148; 80048; 80053; 80061; 83690; 84484; 85025; 85379; 85730; 86658; 86747; 87635; 93005; 93306; 93458; 96374; 99285

== ENCOUNTER → 2020-08-07 | Outpatient (CLI) | payer OTHER ==
--- NOTE | 2020-08-08 08:56 | CT ---
EXAMINATION TYPE: CT abdomen wo/w con DATE OF EXAM: 08/07/2020 COMPARISON: MRI lumbar spine 08/01/2020 INDICATION: abnormal MRI scan. DLP: 1213 mGycm, Automated exposure control for dose reduction was used. CONTRAST: 100 mL of Isovue 300. Study performed with Oral Contrast TECHNIQUE: Axial images were obtained from above the diaphragm to the pubic rami in the axial plane a t 5 mm thick sections. Reconstructed images are reviewed on the computer in the coronal plane. FINDINGS: Limited CT sections are obtained the lung bases. The lung bases are clear. CT ABDOMEN: Liver: Normal Spleen: Calcified granulomata within the spleen Pancreas: Normal Adrenal glands: The adrenal glands are normal. Gallbladder: Normal Kidneys: There is a 4.6 cm mass extending from the anterior superior right kidney. This has heterogen ous enhancement slightly less than the cortex. This appears to washout quickly. Findings are suspicio us for renal cell carcinoma. No hydronephrosis is present. No cysts are present. Delayed images we re obtained through the kidneys, which remain unremarkable. Aorta: Vascular calcification is within the aorta. Inferior vena cava: Normal without contrast. No obvious thrombus is identified. CT PELVIS: Upper portion of the pelvis is included within the [id number] during the exam Loops of bowel within the abdomen and pelvis are normal. There are loops of bowel which are incom pletely distended or lack oral contrast limiting their evaluation. Appendix: Normal as visualized. Urinary bladder: Out of the field of view Genitourinary structures: Out of the [id number] Osseous structures: No suspicious lytic or sclerotic lesions. No suspicious adenopathy at the level o f the renal veins. Study is without intravenous contrast. Vena cava cannot be well evaluated. No obvi ous thrombus is evident. IMPRESSIONS: 1. A suspicious mass left anterior kidney measuring 4.6 cm. Workup for neoplasm is recommended.
== END | disposition home or self-care (01) ==
LOC: RADCTMAIN 17:06
PROVIDERS: ATTEND Urology
DX: D41.02 Neoplasm of uncertain behavior of left kidney (principal)
CPT/HCPCS: 74170; Q9967

== ENCOUNTER → 2020-09-02 | Outpatient (CLI) | payer OTHER ==
--- NOTE | 2020-09-02 13:21 | XR ---
EXAMINATION TYPE: XR chest 2V DATE OF EXAM: 09/02/2020 COMPARISON: NONE TECHNIQUE: PA and lateral views submitted. HISTORY: Preop FINDINGS: The lungs are clear and there is no pneumothorax, pleural effusion, or focal pneumonia. Mild hyperi nflation. Hypertrophic and degenerative change of the spine. IMPRESSION: 1. No acute process.
[2020-09-02 13:22] LABS: African American GFR (CKD) >90 (>60 ml/min/1.73 sqM); Anion Gap 9 mmol/L; Blood Urea Nitrogen 14 mg/dL (9-20); Calcium 9.5 mg/dL (8.4-10.2); Carbon Dioxide 27 mmol/L (22-30); Chloride 102 mmol/L (98-107); Glucose 100 mg/dL (74-99); Non-African American GFR(CKD) >90 (>60 ml/min/1.73 sqM); Potassium 4.8 mmol/L (3.5-5.1); Sodium 138 mmol/L (137-145)
[2020-09-02 13:32] LABS: Appearance,Urine Clear (Clear); Bilirubin,Urine Negative (Negative); Blood,Urine Small (Negative); Color,Urine Yellow; Glucose,Urine (UA) Negative (Negative); Ketones,Urine Negative (Negative); Leukocyte Esterase,Urine Negative (Negative); Mucus,Urine Rare /hpf; Nitrite,Urine Negative (Negative); Protein,Urine Trace (Negative); RBC,Urine <1 /hpf (0-5); Specific Gravity,Urine 1.022 (1.001-1.035); Squamous Epithelial Cell,Urine <1 /hpf (0-4); Urobilinogen,Urine <2.0 mg/dL (<2.0); WBC,Urine 1 /hpf (0-5)
[2020-09-02 13:59] LABS: Basophils % (A) 1 %; Eosinophils # (A) 0.2 k/uL (0-0.7); Eosinophils % (A) 3 %; HCT 43.6 % (39.0-53.0); HGB 14.9 gm/dL (13.0-17.5); Lymphocytes # (A) 1.9 k/uL (1.0-4.8); Lymphocytes % (A) 31 %; MCH 31.9 pg (25.0-35.0); MCHC 34.2 g/dL (31.0-37.0); MCV 93.1 fL (80.0-100.0); Mean Platelet Volume 6.9; Monocytes # (A) 0.4 k/uL (0-1.0); Monocytes % (A) 7 %; Neutrophils # (A) 3.5 k/uL (1.3-7.7); Neutrophils % (A) 58 %; Platelet Count 239 k/uL (150-450); RBC 4.68 m/uL (4.30-5.90); RDW 12.4 % (11.5-15.5); WBC 6.1 k/uL (3.8-10.6)
== END | disposition home or self-care (01) ==
LOC: LABPAT 12:22
PROVIDERS: ATTEND Urology
DX: Z01.818 Encounter for other preprocedural examination (principal); D41.02 Neoplasm of uncertain behavior of left kidney; I10 Essential (primary) hypertension; N28.89 Other specified disorders of kidney and ureter
CPT/HCPCS: 36415; 71046; 80048; 81001; 85025; 86850; 86900; 86901; 87086

== ENCOUNTER 2020-09-11 10:25 | Observation (INO) | payer OTHER ==
--- NOTE | 2020-09-08 09:55 | P.HPIHPCON ---
History of Present Illness H&P Date: 09/11/20 Chief Complaint: left renal mass This is a 50 yo male with hx of 4.6 cm left sided renal mass. Of note he has family hx of RCC. I reviewed imaging with him and his sister and discussed it's concerning for malignancy. The option of robotic radical vs partial nephrectomy was discussed with him. Risk and benefit of each approach were discussed with him. He agreed to proceed with robotic partial nephrectomy. Discussed risk of bleeding, infection, injury to nearby organ, potential of conversion to radical nephrectomy. Discussed potential need for dialysis if radical nephrectomy is performed. I also discussed with her the risk from anesthesia. He understood all the risk and agreed to proceed with robotic assisted laproscopic partial possible radical on left Consent for Procedure: I have explained the operation/procedure to the patient, including the risks, benefits, side effects, alternative therapies (including not receiving the proposed treatment or service), the likelihood of the patient achieving his/her goals, and potential recuperation problems for the procedure/sedation/analgesia, as well as any blood products, if indicated. I also explained to the patient the risks, benefits and side effects of the alternatives, as well as the risks related to not receiving the proposed procedure, care, treatment, or services. Past Medical History Past Medical History: GERD/Reflux Additional Past Medical History / Comment(s): Palpitations in his 20s and wore a holter monitor that did not show arrhythmia, low back pain with L sided sciatica occasionally. History of Any Multi-Drug Resistant Organisms: None Reported Additional Past Surgical History / Comment(s): HPV/mole removal Past Anesthesia/Blood Transfusion Reactions: No Reported Reaction Smoking Status: Current every day smoker - Past Family History Mother Family Medical History: Cancer Additional Family Medical History / Comment(s): Mother from renal cancer at the age of 59yrs. Father History Unknown: Yes Medications and Allergies Home Medications Medication Instructions Recorded Confirmed Type Venlafaxine HCl [Effexor XR] 37.5 mg PO DAILY 07/30/20 07/30/20 History Venlafaxine HCl [Effexor XR] 150 mg PO DAILY 07/30/20 07/30/20 History clonazePAM [KlonoPIN] 1 mg PO TID 07/30/20 07/30/20 History Acetaminophen Tab [Tylenol] 650 mg PO Q6HR PRN #50 tab 08/01/20 Rx Aspirin 81 mg PO DAILY #30 chew 08/01/20 Rx Atorvastatin [Lipitor] 80 mg PO DAILY #30 tab 08/01/20 Rx Famotidine [Pepcid] 20 mg PO BID #60 tablet 08/01/20 Rx Lidocaine 5% Patch [Lidoderm 5% 1 patch TOPICAL DAILY 5 Days #5 08/01/20 Rx Patch] patch Metoprolol Tartrate [Lopressor] 12.5 mg PO BID #60 tab 08/01/20 Rx predniSONE 10 mg PO DIRECTED #24 tab 08/01/20 Rx traMADol HCl [Ultram] 50 mg PO TID PRN 7 Days #21 tab 08/01/20 Rx Allergies Allergy/AdvReac Type Severity Reaction Status Date / Time No Known Allergies Allergy Verified 07/30/20 13:10 Surgical - Exam - General well developed, well nourished, no distress, no pain - Eyes PERRL, normal ocular movement - Respiratory normal expansion, normal respiratory effort - Psychiatric oriented to time, oriented to person, oriented to place Assessment and Plan Assessment: 50 yo male with hx of left sided renal mass -OR for robotic partial nephrectomy possible radical on left
[2020-09-08 16:23] VITALS: BMI 24.8
[~2020-09-11 10:25] MED LIST: DEXAMETHASONE SOD PHOSPHATE 4 MG/ML 1 ML VIAL IV ONE; LIDOCAINE 1% (10MG/ML) FOR IV START INTRADERMA PRN; ONDANSETRON 4 MG/2 ML VIAL IVP ONE
[2020-09-11] MEDS ORDERED: ONDANSETRON 4 MG/2 ML VIAL ONE (11:05)
[2020-09-11] MEDS: LACTATED RINGERS 1,000 ML IV SCH (11:20)
[2020-09-11] MEDS: HEPARIN SODIUM,PORCINE/PF 5,000 UNIT/0.5 ML SYRINGE SQ PRN ×2 (11:31→12:09)
[2020-09-11] MEDS: MIDAZOLAM 2 MG/2 ML VIAL IV PRN ×2 (11:57→12:30)
[2020-09-11] MEDS ORDERED: fentaNYL (PF) 50 MCG/ML 2 ML AMP IV ONE (13:15)
[2020-09-11] MEDS ORDERED: PROPOFOL 10 MG/ML 20 ML VIAL IV ONE (13:40)
[2020-09-11] MEDS ORDERED: fentaNYL (PF) 50 MCG/ML 2 ML AMP ONE (13:40)
[2020-09-11] MEDS ORDERED: LIDOCAINE 1%-EPI 1:100,000 20 ML VIAL ONE (13:40)
[2020-09-11] MEDS ORDERED: MIDAZOLAM 2 MG/2 ML VIAL ONE (13:40)
[2020-09-11] MEDS ORDERED: GLYCOPYRROLATE 0.2 MG/ML 2 ML VIAL ONE (13:40)
[2020-09-11] MEDS ORDERED: NEOSTIGMINE 1 MG/ML 10 ML VIAL ONE (13:40)
[2020-09-11] MEDS ORDERED: LIDOCAINE 1% INJ 10MG/ML (20 ML MDV) ONE (13:40)
[2020-09-11] MEDS ORDERED: ROPIVACAINE 5 MG/ML 30 ML VIAL ONE (13:40)
[2020-09-11] MEDS ORDERED: HYDROmorphone (PF) 1 MG/ML ONE (13:40)
[2020-09-11] MEDS ORDERED: ROCURONIUM 10 MG/ML (5 ML VIAL) IV ONE (13:40)
[2020-09-11] MEDS ORDERED: SUCCINYLCHOLINE CHLORIDE VIAL 200 MG/10 ML VIAL IV ONE (13:40)
[2020-09-11] MEDS ORDERED: BUPIVACAIN-EPI 0.5%-1:200,000 30 ML VIAL SQ ONE (13:50)
[2020-09-11] MEDS ORDERED: LACTATED RINGERS 1,000 ML IV ONE (14:33)
--- NOTE | 2020-09-11 16:53 | P.OP ---
Date of Procedure: 09/11/20 Preoperative Diagnosis: left renal mass Postoperative Diagnosis: same Procedure(s) Performed: Robotic assisted Laproscopic partial nephrectomy on the left, and lysis of adhesions Implants: none Anesthesia: ALYSSIA Surgeon: David Wright Landscaping Supervisor #1: Anabel Richardson Estimated Blood Loss (ml): 50 Pathology: none sent (left renal tumor) Condition: stable Disposition: PACU Indications for Procedure: This is a 50 yo male with hx of 4.6 cm left sided renal mass. Of note he has family hx of RCC. I reviewed imaging with him and his sister and discussed it's concerning for malignancy. The option of robotic radical vs partial nephrectomy was discussed with him. Risk and benefit of each approach were discussed with him. He agreed to proceed with robotic partial nephrectomy. Discussed risk of bleeding, infection, injury to nearby organ, potential of conversion to radical nephrectomy. Discussed potential need for dialysis if radical nephrectomy is performed. I also discussed with her the risk from anesthesia. He understood all the risk and agreed to proceed with robotic assisted laproscopic partial possible radical on left Operative Findings: , Description of Procedure: The patient was taken to the operating room . General anesthesia was induced. He was prepped and draped in sterile fashion, and was placed in modified flank position . All pressure points were padded. The abdominal insufflation was achieved with the Veress needle. A 8 mm camera port was placed. Robotic trocars and dental laboratory assistant ports were placed under direct vision. . The robot was docked into place. Patient had extensive adhesions along the left quadrant, the omentum was taken adherent to Gerota's fascia. Adhesions were taken down sharply, more than 45 minutes were spent lysing adhesions. The colon was then mobilized medially by incising along the white line of Toldt. The spleen and the pancreas were mobilized away from the kidney. Next the ureter was retracted anteriorly off the psoas muscle. Dissection proceeded cranially towards the renal hilum. The renal artery and vein were visualized and dissected in preparation for clamping. Next the kidney was defated and tumor was exposed, the tumor was anterior midpole, of note there was significant parasitic vessels within Gerota that, those were controlled using the bipolar.. Next renal artery was clamped using bulldogs. The tumor was excised sharply, of note the tumor extended to the collecting system, the collecting system was entered. The defect was closed in 2 layers using 3-0V lock for the deeper tissue, and 2-0V lock for the capsular closure using the Sliding clip technique was performed. The collecting system was closed using the 3-0 V lock. The clamps were removed, total clamp time was 25 minutes. Hemostatic agents were placed on the surgical bed. A 10-Welsh flat JOHAN was placed through the left lower quadrant, through the robotic port. Fascia was closed with #1 PDS in figure of 8 fashion . Skin was closed with subcuticular sutures and dermabond. The patient was awoken from general anesthesia in stable condition. Please refer to the final pathology report for final diagnosis
[2020-09-11] MEDS ORDERED: diphenhydrAMINE 50 MG/ML 1 ML VIAL IVP ONE (17:15)
[2020-09-11] MEDS: fentaNYL (PF) 50 MCG/ML 2 ML AMP IVP PRN ×2 (17:28→17:33)
[2020-09-11] MEDS ORDERED: SODIUM CHLORIDE 0.9% 1,000 ML IV ONE (18:03)
--- NOTE | 2020-09-11 18:51 | P.ANPRN ---
Procedure Note - Anesthesia - Nerve Block Performed Bilateral Erector Spinae Single Time Out Performed: Yes Date of Procedure: 09/11/20 Procedure Start Time: 11:56 Procedure Stop Time: 12:07 Location of Patient: PreOp Indication: Acute Post-Operative Pain, Requested by Surgeon Sedation Type: Sedate with meaningful contact maintained Preparation: Sterile Prep Position: Prone Needle Types: Pajunk Needle Gauge: 21 Ultrasound used to visualize needle placement: Yes Ultrasound used to observe medication spread: Yes Blood Aspirated: No Pain Paresthesia on Injection Noted: No Resistance on Injection: Normal Image Stored and Saved: Yes Events: Uneventful and Well Tolerated (ropi .5% 15cc plus xylo 1% with epi 15cc t10 bilaterally)
[2020-09-11] MEDS: clonazePAM 1 MG TAB PO SCH (21:38)
[2020-09-11] MEDS: FAMOTIDINE 20 MG TAB PO SCH (21:38)
[2020-09-11] MEDS: METOPROLOL TARTRATE 25 MG TAB PO SCH (21:38)
[2020-09-11] MEDS: HEPARIN SODIUM,PORCINE/PF 5,000 UNIT/0.5 ML SYRINGE SQ SCH (21:38)
[2020-09-11] MEDS: ATORVASTATIN 80 MG TAB PO SCH (21:38)
[2020-09-11] MEDS: HYDROcodone/APAP 5-325MG 1 EACH TAB PO PRN (21:38)
[2020-09-11 22:18] LABS: Basophils % (A) 0 %; Eosinophils % (A) 0 %; HCT 39.1 % (39.0-53.0); HGB 12.8 gm/dL (13.0-17.5); Lymphocytes # (A) 0.9 k/uL (1.0-4.8); Lymphocytes % (A) 11 %; MCHC 32.8 g/dL (31.0-37.0); MCV 94.5 fL (80.0-100.0); Mean Platelet Volume 6.7; Monocytes # (A) 0.4 k/uL (0-1.0); Monocytes % (A) 5 %; Neutrophils # (A) 6.9 k/uL (1.3-7.7); Neutrophils % (A) 83 %; Platelet Count 231 k/uL (150-450); RBC 4.14 m/uL (4.30-5.90); RDW 13.2 % (11.5-15.5); WBC 8.3 k/uL (3.8-10.6)
[2020-09-11 22:21] LABS: African American GFR (CKD) >90 (>60 ml/min/1.73 sqM); Anion Gap 6 mmol/L; Blood Urea Nitrogen 9 mg/dL (9-20); Calcium 8.5 mg/dL (8.4-10.2); Carbon Dioxide 25 mmol/L (22-30); Chloride 107 mmol/L (98-107); Glucose 117 mg/dL (74-99); Non-African American GFR(CKD) >90 (>60 ml/min/1.73 sqM); Potassium 4.1 mmol/L (3.5-5.1); Sodium 138 mmol/L (137-145)
[2020-09-11] MEDS: MORPHINE SULFATE 4 MG/ML SYRINGE IVP PRN (23:44)
[2020-09-11] MEDS: D5-0.45% NACL WITH KCL 20MEQ/L 1,000 ML IV SCH (23:45)
[2020-09-12] MEDS: clonazePAM 1 MG TAB PO SCH ×5 (00:01→20:16)
[2020-09-12] MEDS: LACTATED RINGERS 1,000 ML IV SCH ×2 (00:01→14:13)
[2020-09-12] MEDS: HYDROcodone/APAP 5-325MG 1 EACH TAB PO PRN ×5 (02:41→20:07)
[2020-09-12] MEDS: methocarbamoL 750 MG TAB PO PRN ×3 (02:43→20:08)
[2020-09-12] MEDS: MORPHINE SULFATE 4 MG/ML SYRINGE IVP PRN ×4 (03:34→21:51)
[2020-09-12] MEDS: HEPARIN SODIUM,PORCINE/PF 5,000 UNIT/0.5 ML SYRINGE SQ SCH ×2 (08:03→20:15)
[2020-09-12] MEDS: FAMOTIDINE 20 MG TAB PO SCH ×2 (08:03→20:09)
[2020-09-12] MEDS: VENLAFAXINE HCL ER 150 MG CAP PO SCH (08:04)
[2020-09-12] MEDS: VENLAFAXINE HCL ER 37.5 MG CAP PO SCH (08:04)
[2020-09-12] MEDS: METOPROLOL TARTRATE 25 MG TAB PO SCH ×2 (08:04→20:09)
[2020-09-12] MEDS: D5-0.45% NACL WITH KCL 20MEQ/L 1,000 ML IV SCH ×3 (08:05→15:48)
[2020-09-12] MEDS: KETOROLAC 15 MG/ML 1 ML VIAL IVP SCH ×2 (11:02→17:28)
[2020-09-12 11:58] LABS: Basophils % (A) 0 %; Eosinophils # (A) 0.1 k/uL (0-0.7); Eosinophils % (A) 2 %; HCT 36.9 % (39.0-53.0); HGB 11.5 gm/dL (13.0-17.5); Lymphocytes # (A) 1.2 k/uL (1.0-4.8); Lymphocytes % (A) 16 %; MCH 30.7 pg (25.0-35.0); MCHC 31.3 g/dL (31.0-37.0); MCV 98.3 fL (80.0-100.0); Mean Platelet Volume 6.9; Monocytes # (A) 0.3 k/uL (0-1.0); Monocytes % (A) 4 %; Neutrophils # (A) 5.7 k/uL (1.3-7.7); Neutrophils % (A) 76 %; Platelet Count 203 k/uL (150-450); RBC 3.76 m/uL (4.30-5.90); RDW 13.3 % (11.5-15.5); WBC 7.4 k/uL (3.8-10.6)
--- NOTE | 2020-09-12 11:58 | P.PN ---
Subjective Progress Note Date: 09/12/20 Postoperative day #1 status post robotic-assisted laparoscopic partial nephrectomy on the left, no acute overnight events. The patient is having some incisional, flank pain. Denies any nausea or vomiting, he was able to ambulate this a.m. Objective - Vital Signs Vital signs: Vital Signs Temp 98.3 F 09/12/20 11:20 Pulse 66 09/12/20 11:20 Resp 18 09/12/20 11:20 BP 143/82 09/12/20 11:20 Pulse Ox 93 L 09/12/20 11:20 Intake & Output 09/11/20 09/12/20 09/12/20 18:59 06:59 18:59 Intake Total 4050 200 Output Total 650 2440 925 Balance 3400 -2240 -925 Weight 96.4 kg Intake: IV 4050 Oral 200 Output: Drainage 40 75 Left Abdomen 40 75 Urine 550 2400 850 Uretheral (Beth) 250 Estimated Blood Loss 100 Other: Voiding Method Indwelling Catheter Indwelling Catheter - Constitutional General appearance: Present: no acute distress - Gastrointestinal General gastrointestinal: Present: soft, tenderness (Along the left flank, and incisional. Incisions clear dry and intact, JOHAN serosanguineous output). Absent: distended - Labs CBC & Chem 7: 09/11/20 21:46 09/11/20 21:46 Labs: Abnormal Lab Results - Last 24 Hours (Table) 09/11/20 09/11/20 Range/Units 21:46 21:46 RBC 4.14 L (4.30-5.90) m/uL Hgb 12.8 L (13.0-17.5) gm/dL Lymphocytes # 0.9 L (1.0-4.8) k/uL Glucose 117 H (74-99) mg/dL Assessment and Plan Assessment: Postoperative day #1 status post left robotic laparoscopic partial nephrectomy on the left -Pain control, will add Toradol -Discontinue Beth -Repeat p.m. labs -plan on discharge home tomorrow with a JOHAN drain
[2020-09-12 13:33] LABS: African American GFR (CKD) >90 (>60 ml/min/1.73 sqM); Anion Gap 4 mmol/L; Blood Urea Nitrogen 7 mg/dL (9-20); Calcium 8.5 mg/dL (8.4-10.2); Carbon Dioxide 25 mmol/L (22-30); Chloride 105 mmol/L (98-107); Glucose 105 mg/dL (74-99); Non-African American GFR(CKD) >90 (>60 ml/min/1.73 sqM); Potassium 3.6 mmol/L (3.5-5.1); Sodium 134 mmol/L (137-145)
[2020-09-12] MEDS: ATORVASTATIN 80 MG TAB PO SCH (20:08)
[2020-09-12] MEDS: SENNOSIDES 8.6 MG TAB PO SCH (20:08)
[2020-09-13] MEDS: KETOROLAC 15 MG/ML 1 ML VIAL IVP SCH ×3 (00:03→11:56)
[2020-09-13] MEDS: HYDROcodone/APAP 5-325MG 1 EACH TAB PO PRN ×6 (00:06→14:55)
[2020-09-13] MEDS: D5-0.45% NACL WITH KCL 20MEQ/L 1,000 ML IV SCH ×2 (00:09→08:35)
[2020-09-13] MEDS: SENNOSIDES 8.6 MG TAB PO SCH (07:45)
[2020-09-13] MEDS: clonazePAM 1 MG TAB PO SCH (07:45)
[2020-09-13] MEDS: METOPROLOL TARTRATE 25 MG TAB PO SCH (07:45)
[2020-09-13] MEDS: FAMOTIDINE 20 MG TAB PO SCH (07:46)
[2020-09-13] MEDS: HEPARIN SODIUM,PORCINE/PF 5,000 UNIT/0.5 ML SYRINGE SQ SCH (07:46)
[2020-09-13] MEDS: VENLAFAXINE HCL ER 150 MG CAP PO SCH (11:55)
[2020-09-13] MEDS: VENLAFAXINE HCL ER 37.5 MG CAP PO SCH (11:56)
[2020-09-13 11:57] VITALS: BP 173/93; PULSE 81; RESP 18; TEMP 97.7
--- NOTE | 2020-09-13 13:56 | P.DS ---
Providers Date of admission: 09/12/20 04:00 Expected date of discharge: 09/13/20 Attending physician: David Wright MD Primary care physician: Taurus Petit [facility] Course: On the day of admission, the patient underwent an uncomplicated robotic-assisted laparoscopic left partial nephrectomy. Perioperative course was unremarkable. Patient remained afebrile with stable vital signs. He reported incisional discomfort on the first postoperative day, which was somewhat improved on the second postoperative day. He was tolerating diet and passing flatus at that time. The abdomen was soft and nondistended. The incisions were clean and dry. JOHAN drainage was 40-120 mL per shift. Procedures: Robotic-assisted laparoscopic left partial nephrectomy on 09/11/2020 Patient Condition at Discharge: Good Plan - Discharge Summary Discharge Rx Participant: Yes New Discharge Prescriptions: New HYDROcodone/APAP 5-325MG [[place] 5-325] 2 tab PO Q4HR PRN #15 tab PRN Reason: Pain Ketorolac [Toradol] 10 mg PO Q6HR PRN #10 tab PRN Reason: Mild To Moderate Pain No Action Venlafaxine HCl [Effexor XR] 37.5 mg PO DAILY Famotidine [Pepcid] 20 mg PO BID #60 tablet Sucralfate [Carafate] 1 gm PO PC-BID clonazePAM [KlonoPIN] 1 mg PO TID Venlafaxine HCl [Effexor XR] 150 mg PO DAILY Aspirin 81 mg PO DAILY #30 chew Metoprolol Tartrate [Lopressor] 25 mg PO BID Atorvastatin [Lipitor] 80 mg PO HS Discharge Medication List Venlafaxine HCl [Effexor XR] 37.5 mg PO DAILY 07/30/20 [History] Venlafaxine HCl [Effexor XR] 150 mg PO DAILY 07/30/20 [History] clonazePAM [KlonoPIN] 1 mg PO TID 07/30/20 [History] Aspirin 81 mg PO DAILY #30 chew 08/01/20 [Rx] Famotidine [Pepcid] 20 mg PO BID #60 tablet 08/01/20 [Rx] Atorvastatin [Lipitor] 80 mg PO HS 09/10/20 [History] Metoprolol Tartrate [Lopressor] 25 mg PO BID 09/10/20 [History] Sucralfate [Carafate] 1 gm PO PC-BID 09/10/20 [History] HYDROcodone/APAP 5-325MG [[place] 5-325] 2 tab PO Q4HR PRN #15 tab 09/13/20 [Rx] Ketorolac [Toradol] 10 mg PO Q6HR PRN #10 tab 09/13/20 [Rx] Follow up Appointment(s)/Referral(s): David Wright MD [STAFF PHYSICIAN] - 3 Days Activity/Diet/Wound Care/Special Instructions: No Heavy lifting or straining for 4 weeks You may shower but no baths for 4 weeks Record output from the drain Use [place] for mild pain, [place] for moderate to severe pain. Discharge Disposition: HOME SELF-CARE
== END 2020-09-13 16:06 | disposition home or self-care (01) ==
LOC: OR 10:25 → 5NMEDONC 17:19 → OR 09-12 04:00 → 5NMEDONC 09-12 04:00
PROVIDERS: ADMIT Urology; ATTEND Urology
DX: C64.2 Malignant neoplasm of left kidney, except renal pelvis (principal); K21.9 Gastro-esophageal reflux disease without esophagitis; M54.42 Lumbago with sciatica, left side; G47.33 Obstructive sleep apnea (adult) (pediatric); F32.9 Major depressive disorder, single episode, unspecified; F17.200 Nicotine dependence, unspecified, uncomplicated; Z79.82 Long term (current) use of aspirin; Z79.899 Other long term (current) drug therapy; Z80.51 Family history of malignant neoplasm of kidney
CPT/HCPCS: 50543; S2900; 64999; 76942; 80048; 85025; 86850; 86900; 86901; 87635; 88307

== ENCOUNTER → 2021-04-08 | Outpatient (CLI) | payer OTHER ==
--- NOTE | 2021-04-08 09:17 | XR ---
EXAMINATION TYPE: XR chest 2V DATE OF EXAM: 04/08/2021 COMPARISON: 09/02/2020 TECHNIQUE: PA and lateral views submitted. HISTORY: Renal neoplasm FINDINGS: The lungs are clear and there is no pneumothorax, pleural effusion, or focal pneumonia. Hypertrophi c and degenerative changes of the spine. Heart size normal. No overt failure. IMPRESSION: 1. No acute process.
[2021-04-08 09:29] LABS: African American GFR (CKD) >90 (>60 ml/min/1.73 sqM); Blood Urea Nitrogen 17 mg/dL (9-20); Non-African American GFR(CKD) 81 (>60 ml/min/1.73 sqM)
--- NOTE | 2021-04-08 10:16 | CT ---
EXAMINATION TYPE: CT abdomen wo/w con DATE OF EXAM: 04/08/2021 COMPARISON: 08/07/2020 HISTORY: Neoplasm of uncertain behavior, left kidney cancer CT DLP: 1050.90 mGycm CONTRAST: CT scan of the abdomen is performed with Oral Contrast and without and with IV Contrast, patient inje cted with 100 mL of Isovue 300. FINDINGS: LUNG BASES-: No visible nodule. No infiltrate. LIVER/GB: No calcified gallstones. No space occupying hepatic lesion. Biliary tree is of normal ca liber. PANCREAS: No inflammation. No distinct mass. SPLEEN: No splenic enlargement. No lesion seen. ADRENALS: No nodule. No thickening. KIDNEYS/BLADDER: No hydronephrosis. No nephrolithiasis. Previously noted left renal mass has been s urgically removed with small renal defect noted. There is no evidence for recurrent or residual mass. Tiny left upper pole cyst measuring 9.5 mm. This is unchanged relative to prior examination. Right k idney is unremarkable. BOWEL: Normal appendix. Normal bowel caliber. No inflammation. GENITAL ORGANS: No gross abnormality. LYMPH NODES: No greater than 1cm abdominal or pelvic lymph nodes are appreciated. AORTA: No significant abnormality. OSSEOUS STRUCTURES: No significant abnormality is seen. OTHER: No significant additional abnormality is seen. IMPRESSION: 1. Previously noted left renal mass has been surgically removed with small renal defect noted. There is no evidence for recurrent or residual mass.
== END | disposition home or self-care (01) ==
LOC: RADCTMAIN 08:41
PROVIDERS: ATTEND Urology
DX: N28.1 Cyst of kidney, acquired (principal); Z85.528 Personal history of other malignant neoplasm of kidney
CPT/HCPCS: 82565; 84520; 71046; 74170; 36415; Q9967

== ENCOUNTER 2021-06-04 08:05 | Day surgery (SDC) | payer OTHER ==
[2021-06-01 16:20] VITALS: BMI 26.2
[~2021-06-04 08:05] MED LIST changes: -DEXAMETHASONE SOD PHOSPHATE 4 MG/ML 1 ML VIAL IV ONE; +LACTATED RINGERS 1,000 ML IV SCH; -LIDOCAINE 1% (10MG/ML) FOR IV START INTRADERMA PRN; -ONDANSETRON 4 MG/2 ML VIAL IVP ONE
[2021-06-04 08:39] VITALS: RESP 16; TEMP 98.5
[2021-06-04] MEDS ORDERED: LIDOCAINE 1% (10MG/ML) FOR IV START INTRADERMA ONE (08:43)
[2021-06-04] MEDS ORDERED: PROPOFOL 10 MG/ML 20 ML VIAL IV ONE (08:54)
--- NOTE | 2021-06-04 08:55 | P.GSHP ---
History of Present Illness H&P Date: 06/04/21 Chief Complaint: Screening colonoscopy Is a 50-year-old male who presents today for screening colonoscopy. Patient denies a significant GI complaints. Past Medical History Past Medical History: Hypertension Additional Past Medical History / Comment(s): Palpitations in his 20s and wore a holter monitor that did not show arrhythmia, low back pain with L sided sciatica occasionally. History of Any Multi-Drug Resistant Organisms: None Reported Additional Past Surgical History / Comment(s): LEFT KIDNEY TUMOR REMOVED Past Anesthesia/Blood Transfusion Reactions: No Reported Reaction Past Psychological History: Anxiety Smoking Status: Current every day smoker Past Alcohol Use History: None Reported Past Drug Use History: None Reported - Past Family History Mother Family Medical History: Cancer Additional Family Medical History / Comment(s): Mother from renal cancer at the age of 59yrs. Father History Unknown: Yes Sister(s) Family Medical History: CVA/TIA Medications and Allergies Home Medications Medication Instructions Recorded Confirmed Type clonazePAM [KlonoPIN] 1 mg PO TID 07/30/20 06/04/21 History Metoprolol Tartrate [Lopressor] 25 mg PO BID 09/10/20 06/04/21 History Allergies Allergy/AdvReac Type Severity Reaction Status Date / Time No Known Allergies Allergy Verified 06/04/21 08:29 Surgical - Exam Vital Signs Temp Pulse Resp BP Pulse Ox 98.5 F 68 16 145/87 99 06/04/21 08:37 06/04/21 08:37 06/04/21 08:37 06/04/21 08:37 06/04/21 08:37 - General well developed, well nourished, no distress - Eyes PERRL - ENT normal pinna - Neck no masses - Respiratory normal expansion - Cardiovascular Rhythm: regular - Abdomen Abdomen: soft, non tender Assessment and Plan Assessment: We'll perform screening colonoscopy
--- NOTE | 2021-06-04 09:16 | P.OP ---
Date of Procedure: 06/04/21 Preoperative Diagnosis: Screening colonoscopy Postoperative Diagnosis: Transverse colon polyp Procedure(s) Performed: Colonoscopy Anesthesia: MAC Surgeon: Garrett Manzanares Pathology: other (Transverse colon polyp) Condition: stable Disposition: PACU Description of Procedure: Patient's placed on the endoscopy table in the lateral position. He received IV sedation. Digital rectal exam was performed. This revealed no ebonized. The possible colonoscope was then placed patient anus and passed throughout the entire colon. The ileocecal valve was visually is. The cecum, ascending colon appeared normal. In the transverse colon there was a small polypectomy with the snare. The remainder the transverse colon appeared normal. In the descending and sigmoid colon appeared normal. Scope was then brought back the rectum this was normal. Scope withdrawn for patient.
[2021-06-04 09:23] VITALS: PULSE 66
[2021-06-04 09:36] VITALS: BP 101/62
== END 2021-06-04 10:08 | disposition home or self-care (01) ==
LOC: ORWHC2ENDO 08:05
PROVIDERS: ATTEND Surgery
DX: Z12.11 Encounter for screening for malignant neoplasm of colon (principal); D12.3 Benign neoplasm of transverse colon; I10 Essential (primary) hypertension; M54.32 Sciatica, left side; Z98.890 Other specified postprocedural states; F17.210 Nicotine dependence, cigarettes, uncomplicated; Z85.528 Personal history of other malignant neoplasm of kidney; F41.9 Anxiety disorder, unspecified; Z80.51 Family history of malignant neoplasm of kidney; Z82.3 Family history of stroke; Z79.899 Other long term (current) drug therapy
CPT/HCPCS: 88305; 45385; J2704